=== PATIENT | female | born 1980 | race Caucasian/White ===

== ENCOUNTER 2021-12-24 11:51 | Emergency (ER) | payer MEDICAID, SELFPAY ==
[2021-12-24 12:16] VITALS: BP 99/60; PULSE 66; RESP 18; TEMP 36.5; O2SAT 96; BMI 39.1
--- NOTE | 2021-12-24 13:17 | ED.EAR ---
HPI - Ear Problem General Chief complaint: Ear/Nose/Throat Problem Stated complaint: Ear infection Time Seen by Provider: 12/24/21 11:52 History of Present Illness HPI Narrative: This 41-year-old female comes in reporting pain in her left ear. She states that she has a history of recurrent ear infections and is following with an patient accounts specialist. She has been using external ear drops but feels that she may need an oral antibiotic. She does not report any fevers, cough, shortness of breath, or nasal congestion. She does have some decreased hearing on the left side related to this. Related Data Home Medications Medication Instructions Recorded Confirmed albuterol sulfate 2.5 mg/3 mL mg 12/24/21 (0.083 %) solution for nebulization albuterol sulfate 90 mcg/actuation inhalation 12/24/21 aerosol inhaler famotidine 20 mg tablet mg 12/24/21 fluticasone furoate 100 inhalation 12/24/21 mcg-vilanterol 25 mcg/dose inhalation powder (Breo Ellipta) montelukast 10 mg tablet mg 12/24/21 oxybutynin chloride 5 mg tablet mg 12/24/21 propranolol 20 mg tablet mg 12/24/21 rosuvastatin 10 mg tablet mg 12/24/21 tiotropium bromide 2.5 inhalation 12/24/21 mcg/actuation mist for inhalation (Spiriva Respimat) venlafaxine 150 mg mg PO 12/24/21 capsule,extended release 24 hr venlafaxine 75 mg capsule,extended mg PO 12/24/21 release 24 hr Previous Rx's Medication Instructions Recorded amoxicillin 500 mg capsule 500 mg PO TID 10 days #30 caps 12/24/21 Allergies Allergy/AdvReac Type Severity Reaction Status Date / Time Dust mites Allergy Mild itchy eyes Uncoded 12/10/21 13:26 and swollen, SOB Pollen Allergy Mild itchy Uncoded 12/10/21 13:26 eyes, SOB Review of Systems Status of ROS: Reports: 10 or more systems reviewed and unremarkable except as noted in History and below Narrative: Constitutional: No fevers, no weight gain or loss. Eyes: No discharge. No vision changes. HENT: No congestion, no sore throat. Left ear pain as described above per Cardiovascular: No chest pain, no palpitations. Respiratory: No shortness of breath, no wheezes, no cough. Gastrointestinal: No abdominal pain, no vomiting, no diarrhea. Genitourinary: No dysuria, no hematuria. Musculoskeletal: Normal range of motion. Skin: No rashes, no pruritis. Neurological: No dizziness, weakness, sensory change, speech change. Endo/Heme/Allergies: No bruising or bleeding. No polydipsia. Pysch: no suicidality, no anxiety, no insomnia. All other systems reviewed and are negative. [facility] Medical History (Updated 12/24/21 @ 13:20 by Edgar Duron MD) Body mass index (BMI) of 30.0 to 39.9 (01/16/11) Chronic diarrhea (12/02/08) Chronic gastroesophageal reflux disease Contusion of coccyx Migraine headache (2009) Moderate persistent asthma (2011) Obstructive sleep apnea treated with continuous positive airway pressure (CPAP) [facility]ia Surgical History (Updated 12/20/21 @ 14:54 by Khushboo Manning MD) History of carpal tunnel surgery of left wrist (2017) Hx of tympanostomy tubes Family History (Updated 12/11/21 @ 10:14 by Helena Patton) Maternal Grandmother Breast cancer Stroke Maternal Grandfather Diabetes Myocardial infarction, Onset Age: 80 Mother Diabetes Social History (Updated 12/11/21 @ 10:15 by Helena Patton) Narrative: Does not drink alcohol Does not have regular exercise regimen- walks 1/M daily? 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 HEENT: Normocephalic, atraumatic. Right tympanic membrane has some scarring but no sign of acute infection. Left tympanic membrane has dullness and appears to be infected. Neck: Normal range of motion. Nontender. Supple. Heart: Intact distal pulses. Lungs: No chest discomfort. No wheezes, rhonchi, or rales. Abdomen: Nontender. Back: Normal range of motion. Extremities: Normal range of motion. No injury. Skin: Intact. No rash. Warm. No erythema or pallor. Neurologic: No altered sensation. No weakness. Alert and oriented. Psychiatric: No suicidality. No anxiety or depression. No insomnia. Nursing notes and vitals signs are reviewed. Const: Vital Signs, click to edit/add: Vital Signs - 24 hr 12/24/21 12:16 Temperature 97.7 F Pulse Rate [Pulse Oximeter] 66 Respiratory Rate 18 Blood Pressure [Ri ght Upper Arm] 99/60 Pulse Oximetry 96 Oxygen Delivery Me thod Room Air Course Vital Signs Vital signs: Initial Vital Signs Temperature 97.7 F 12/24/21 12:16 Temperature Source Temporal Artery Scan 12/24/21 12:16 Pulse Rate 66 12/24/21 12:16 Respiratory Rate 18 12/24/21 12:16 Blood Pressure 99/60 12/24/21 12:16 Blood Pressure Mean 73 12/24/21 12:16 Blood Pressure Position Supine 12/24/21 12:16 Pulse Oximetry 96 12/24/21 12:16 Oxygen Delivery Method 12/24/21 12:16 Vital Signs Temperature 97.7 F 12/24/21 12:16 Pulse Rate 66 12/24/21 12:16 Respiratory Rate 18 12/24/21 12:16 Blood Pressure 99/60 12/24/21 12:16 Pulse Oximetry 96 12/24/21 12:16 Oxygen Delivery Method 12/24/21 12:16 Temperature 97.7 F 12/24/21 12:16 Pulse Rate 66 12/24/21 12:16 Respiratory Rate 18 12/24/21 12:16 Blood Pressure 99/60 12/24/21 12:16 Pulse Oximetry 96 12/24/21 12:16 Oxygen Delivery Method 12/24/21 12:16 Medical Decision Making MDM Narrative Medical decision making narrative: This patient comes in with recurrent otitis media. A prescription for amoxicillin is provided. She is also requesting a COVID test as her employer is wanting this. This is ordered with results pending. Discharge Plan Discharge Clinical Impression: Otitis media Patient Disposition: Home, Self-Care Condition: Stable Instructions: Ear Infection (ED) Additional Instructions: Take medication as prescribed. [facility]. Prescriptions: New amoxicillin 500 mg capsule 500 mg PO TID 10 Days Qty: 30 0RF No Action venlafaxine 75 mg capsule,extended release 24hr PO Label Comments: TAKE ONE CAPSULE (75MG) BY MOUTH ONCE DAILY ALONG WITH 1-150MG CAP FOR TOTAL DOSE OF 225MG albuterol sulfate 2.5 mg /3 mL (0.083 %) solution for nebulization Label Comments: USE ONE VIAL IN NEBULIZER EVERY FOUR HOURS NEEDED venlafaxine 150 mg capsule,extended release 24hr PO Label Comments: TAKE 1 CAPSULE (150MG) BY MOUTH ONCE DAILY famotidine 20 mg tablet Label Comments: TAKE ONE TABLET BY MOUTH DAILY montelukast 10 mg tablet Label Comments: TAKE ONE TABLET BY MOUTH AT BEDTIME albuterol sulfate 90 mcg/actuation HFA aerosol inhaler INHALATION Label Comments: INHALE 2 PUFFS EVERY FOUR HOURS NEEDED propranolol 20 mg tablet Label Comments: TAKE TWO TABLETS(40MG) BY MOUTH DAILY oxybutynin chloride 5 mg tablet Label Comments: TAKE ONE TABLET BY MOUTH DAILY rosuvastatin 10 mg tablet Label Comments: TAKE ONE TABLET BY MOUTH DAILY Spiriva Respimat 2.5 mcg/actuation mist INHALATION Label Comments: INHALE 2 PUFF BY INHALATION ROUTE EVERY DAY AT THE SAME TIME EACH DAY fluticasone furoate-vilanterol [Breo Ellipta] 100-25 mcg/dose blister with device INHALATION Label Comments: INHALE 1 PUFF EVERY DAY AT THE SAME TIME EACH DAY RINSE AND SPIT AFTER USE (BUT DO NOT GARGLE). Follow Up/Referrals: Khushboo Manning MD [Primary Care Provider] - Stand Alone Forms: [employer] [facility] Info Instructions
== END 2021-12-24 13:44 | disposition home or self-care (01) ==
PROVIDERS: Emergency Provider Emergency Medicine Emergency Medical Services; PCP Family Medicine
DX: H66.92 Otitis media, unspecified, left ear (principal)
CPT/HCPCS: 99283; 99284

== ENCOUNTER 2022-01-30 16:00 | Outpatient (REF) | payer MEDICAID, SELFPAY ==
[2022-01-30 17:01] LABS: Basophils Percent Auto 0.4 % (0.0-3.0); Eosinophils Percent Auto 5.2 % (0.0-7.0); Hematocrit 45.5 % (33.0-51.0); Hemoglobin* 15.8 gm/dL (12.0-16.0); Immature Granulocytes Abs Auto 0.11 K/uL (0.00-0.30); Lymphocytes Percent Auto 16.7 % (20-44); Mean Corpuscular HGB Conc 35 gm/dL (32-36); Mean Corpuscular Hemoglobin 28 pg (26-34); Mean Corpuscular Volume 81 fL (80-100); Monocytes Percent Auto 6.7 % (0.0-11.0); Neutrophils Percent Auto 70.3 % (42.0-72.0); Platelet Count* 327 K/uL (140-440); RDW Coefficient of Variation % 12.4 % (11.5-15.5); Red Blood Count 5.59 m/uL (4.00-5.20)
[2022-01-30 17:28] LABS: Slide Review Reflex No
[2022-02-02 15:40] LABS: Immunoglobulin E 21 kU/L (<=214)
== END 2022-01-30 16:01 | disposition home or self-care (01) ==
LOC: NPINS 16:00
PROVIDERS: PCP Family Medicine; Visit Provider Internal Medicine Pulmonary Disease
DX: R05.9 Cough, unspecified (principal); J45.41 Moderate persistent asthma with (acute) exacerbation; K21.9 Gastro-esophageal reflux disease without esophagitis; G47.33 Obstructive sleep apnea (adult) (pediatric); Z68.39 Body mass index [BMI] 39.0-39.9, adult; R06.00 Dyspnea, unspecified; G31.84 Mild cognitive impairment of uncertain or unknown etiology; R06.9 Unspecified abnormalities of breathing
CPT/HCPCS: 82785; 85025

== ENCOUNTER 2022-03-08 13:42 | Outpatient (CLI) | payer MEDICAID, SELFPAY ==
[2022-03-08] MEDS: PERFLUTREN LIPID MICROSPHERES 2 ML VIAL IV (14:53)
--- NOTE | 2022-03-08 15:15 | CRLHL7_ITS ---
For Patients: As a result of the Cures Act, medical imaging exams and procedure reports are released immediately into your electronic medical record. You may view this report before your referring provider. If you have questions, please contact your health care provider. INDICATION: increased dyspnea, cough TECHNIQUE: Chest 2 views COMPARISON: None FINDINGS: Cardiovascular and mediastinum: Heart size and vasculature are normal in caliber and appearance. Lungs and pleural spaces: Mild bronchial wall thickening is noted in the perihilar lungs. No sign of infiltrate or mass. No sign of pleural effusion. No pneumothorax. Bones and soft tissues: No significant findings. IMPRESSION: Mild bilateral perihilar bronchial wall thickening extending to both upper lobes suggesting either bronchiolitis related to reactive airway disease or post viral syndrome versus bronchiectasis. Dictated by Ronnie Toscano MD @ 03/08/2022 3:33:08 PM (Electronically Signed)
== END 2022-03-08 13:43 | disposition home or self-care (01) ==
LOC: RAD 13:44
PROVIDERS: PCP Family Medicine; Visit Provider Internal Medicine Pulmonary Disease
DX: R06.09 Other forms of dyspnea (principal); J47.9 Bronchiectasis, uncomplicated; R05.9 Cough, unspecified
CPT/HCPCS: 71046; 93306; Q9957

== ENCOUNTER 2022-09-03 13:52 | Emergency (ER) | payer MEDICAID, SELFPAY ==
[2022-09-03 14:14] VITALS: BP 117/78; PULSE 95; RESP 32; TEMP 36.4; O2SAT 96; BMI 39.1
--- NOTE | 2022-09-03 14:43 | CRLHL7_ITS ---
For Patients: As a result of the Century Cures Act, medical imaging exams and procedure reports are released immediately into your electronic medical record. You may view this report before your referring provider. If you have questions, please contact your health care provider. Indication: Shortness of breath. Cough. Technique: Portable one-view AP upright chest x-ray Comparison: 03/08/2022. Findings: Lungs clear. Heart normal. Angie unremarkable. No pleural fluid or pneumothorax. No musculoskeletal pathology identified. Impression: Negative chest x-ray, little changed from 03/08/2022. Dictated by Janes Sorensen MD @ 09/03/2022 3:41:52 PM (Electronically Signed)
[2022-09-03 15:14] LABS: PCR FLU A Negative PCR FLU A (Negative); PCR FLU B Negative PCR FLU B (Negative); PCR RSV Negative PCR RSV (Negative); SARS PCR* Negative SARS-CoV-2 (Negative)
--- NOTE | 2022-09-03 15:32 | ED.GENADULT ---
HPI - General Adult General Date Seen: 09/03/22 Chief complaint: Cough Stated complaint: Cold going for a week, Getting worse Time Seen by Provider: 09/03/22 14:13 Source: patient Mode of arrival: ambulatory Limitations: no limitations History of Present Illness HPI narrative: Patient is a 42-year-old here for evaluation of cough and shortness of breath. She has asthma who reports that she has been using her rescue neb and inhaler frequently but still feels short of breath. She does have a couple of other asthma medications as well and she has been taking those as prescribed. She does occasionally smoke pot but says she is not this week. She does not smoke cigarettes. She has not had a fever that she knows of. She does not have chest pain although her chest feels heavy. She is not coughing anything up, but the sometimes coughs so hard that she has thrown up on the heels of a coughing spell. Related Data Home Medications Medication Instructions Recorded Confirmed albuterol sulfate 2.5 mg/3 mL 2.5 mg continuous nebulization 02/25/22 02/25/22 (0.083 %) solution for nebulization Q6-8H PRN shortness of breath or wheezing albuterol sulfate 90 mcg/actuation 2 puff inhalation Q6-8H PRN 02/25/22 02/25/22 aerosol inhaler shortness of breath or wheezing dupilumab 200 mg/1.14 mL 200 mg subcut Q2W 02/25/22 02/25/22 subcutaneous pen injector fluticasone furoate 100 1 inh inhalation QDAY 02/25/22 02/25/22 mcg-vilanterol 25 mcg/dose inhalation powder (Breo Ellipta) ibuprofen 800 mg tablet 800 mg PO Q8H PRN 02/25/22 02/25/22 prednisone 20 mg tablet 10 mg PO QDAY 02/25/22 02/25/22 rosuvastatin 10 mg tablet 10 mg PO QDAY 02/25/22 02/25/22 tiotropium bromide 2.5 2 puff inhalation QDAY 02/25/22 02/25/22 mcg/actuation mist for inhalation (Spiriva Respimat) levonorgestrel-ethinyl estradiol 1 tab PO QDAY 08/19/22 0.1 mg-20 mcg tablet (Vienva) Previous Rx's Medication Instructions Recorded triamcinolone acetonide 0.1 % 1 applic topical BID #30 grams 02/25/22 topical ointment promethazine 25 mg tablet See Rx Instructions .Route 05/22/22 .COMPLEX #10 tabs lorazepam 0.5 mg tablet 0.5 mg PO QDAY PRN anxiety #10 tabs 06/28/22 famotidine 20 mg tablet 20 mg PO QDAY #90 tabs 08/20/22 levonorgestrel-ethinyl estradiol 1 tab PO QDAY #28 tabs 08/20/22 0.1 mg-20 mcg tablet (Vienva) montelukast 10 mg tablet 10 mg PO QDAY #30 tabs 08/29/22 oxybutynin chloride 5 mg tablet 5 mg PO QDAY #30 tabs 08/29/22 propranolol 20 mg tablet 40 mg PO QDAY #60 tabs 08/29/22 venlafaxine 150 mg 150 mg PO QDAY #30 caps 08/29/22 capsule,extended release 24 hr venlafaxine 75 mg capsule,extended 75 mg PO QDAY #30 caps 08/29/22 release 24 hr codeine 10 mg-guaifenesin 100 mg/5 10 ml PO Q4-6H PRN #120 mL 09/03/22 mL oral liquid (Guaifenesin AC) prednisone 20 mg tablet 20 mg PO BID #10 tabs 09/03/22 Allergies Allergy/AdvReac Type Severity Reaction Status Date / Time Dust mites Allergy Mild itchy eyes Uncoded 02/25/22 12:55 and swollen, SOB Pollen Allergy Mild itchy Uncoded 02/25/22 12:55 eyes, SOB Review of Systems Status of ROS: Reports: 6 or more systems reviewed and unremarkable except as noted in History and below [facility] Medical History Body mass index (BMI) of 30.0 to 39.9 (01/16/11) Chronic diarrhea (12/02/08) ?K52.9 - Noninfective gastroenteritis and colitis, unspecified (ICD-10) Chronic gastroesophageal reflux disease ?K21.9 - Gastro-esophageal reflux disease without esophagitis (ICD-10) Contusion of coccyx ?S30.0XXA - Contusion of lower back and pelvis, initial encounter (ICD-10) Migraine headache (2009) ?G43.909 - Migraine, unspecified, not intractable, without status migrainosus (ICD-10) Moderate persistent asthma (2011) ?J45.40 - Moderate persistent asthma, uncomplicated (ICD-10) Obstructive sleep apnea treated with continuous positive airway pressure (CPAP) ?G47.33 - Obstructive sleep apnea (adult) (pediatric) (ICD-10) ?Z99.89 - Dependence on other enabling machines and devices (ICD-10) Paronychia Surgical History History of carpal tunnel surgery of left wrist (2018) ?Z98.890 - Other specified postprocedural states (ICD-10) Hx of tympanostomy tubes ?Z98.890 - Other specified postprocedural states (ICD-10) Family History Maternal Grandmother Breast cancer Stroke Maternal Grandfather Diabetes Myocardial infarction, Onset Age: 80 Mother Diabetes Social History Narrative: Does not drink alcohol Does not have regular exercise regimen- walks 1/M daily? 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 In general, an alert, nontoxic woman. Coughs occasionally, breathing easily. Head: Normocephalic, atraumatic. Eyes: Pupils are equal reactive. Extraocular movements are full. Conjunctivae are normal. ENT: Mucous membranes are moist. Throat is normal. Neck: Supple without lymphadenopathy. No stridor. Heart: Regular rate and rhythm. No murmur or rub. Lungs: She does not have wheezing with inspiration or expiration, she does have a little bit of wheezing noted at the end of her cough. No crackles, no increased work of breathing. Abdomen: Soft and nontender. No organomegaly. Extremities: Well perfused. No edema. No calf tenderness. Pulses intact. Neurologic: Patient is alert and oriented to person and place. Speech is fluent. Face is symmetric. Moves all extremities equally. Affect: Normal. Skin: Warm and dry. Well perfused. Const: Vital Signs, click to edit/add: Vital Signs - 24 hr 09/03/22 14:14 Temperature 97.5 F L Pulse Rate [Pulse Oximeter] 95 Respiratory Rate 32 H Blood Pressure [Ri ght Upper Arm] 117/78 Pulse Oximetry 96 Oxygen Delivery Me thod Room Air Documenting provider has reviewed patient's vital signs: yes Course Course Hospital Course: I did do a chest x-ray today which I reviewed, I do not see any evidence of infiltrate. Final radiology read is likewise negative. Discussed with her I think symptoms are likely viral, bronchitis, exacerbated by her known asthma diagnosis. She looks well here, she is oxygenating well and does not appear to have significant reactive airways right now. I have suggested that we put her on some prednisone and offered a cough syrup with codeine which she says has been useful in the past. If she has worsening respiratory difficulties, return at any time for re-evaluation. Otherwise primary care follow-up if not improved in the next week or 2. Avoid marijuana. Vital Signs Vital signs: Initial Vital Signs Temperature 97.5 F L 09/03/22 14:14 Temperature Source Temporal Artery Scan 09/03/22 14:14 Pulse Rate 95 09/03/22 14:14 Respiratory Rate 32 H 09/03/22 14:14 Blood Pressure 117/78 09/03/22 14:14 Blood Pressure Mean 91 09/03/22 14:14 Blood Pressure Position Sitting 09/03/22 14:14 Pulse Oximetry 96 09/03/22 14:14 Oxygen Delivery Method Room Air 09/03/22 14:14 Vital Signs Temperature 97.5 F L 09/03/22 14:14 Pulse Rate 95 09/03/22 14:14 Respiratory Rate 32 H 09/03/22 14:14 Blood Pressure 117/78 09/03/22 14:14 Pulse Oximetry 96 09/03/22 14:14 Oxygen Delivery Method Room Air 09/03/22 14:14 Temperature 97.5 F L 09/03/22 14:14 Pulse Rate 95 09/03/22 14:14 Respiratory Rate 32 H 09/03/22 14:14 Blood Pressure 117/78 09/03/22 14:14 Pulse Oximetry 96 09/03/22 14:14 Oxygen Delivery Method Room Air 09/03/22 14:14 Medical Decision Making Lab Data Labs: Lab Results 09/03/22 Range/Units 14:02 SARS-CoV-2 (PCR) Negative SARS-CoV-2 (Negative) Influenza Type A (PCR) Negative PCR FLU A (Negative) Influenza Type B (PCR) Negative PCR FLU B (Negative) RSV (PCR) Negative PCR RSV (Negative) Discharge Plan Discharge Clinical Impression: Bronchitis, Asthma Patient Disposition: Home, Self-Care Condition: Stable Instructions: Acute Bronchitis (ED) Additional Instructions: Continue with your current medications. Other medicines as prescribed. If you are worsening rather than stable to improving, return at any time for re-evaluation. See primary care if not improved in a couple of weeks. Prescriptions: New prednisone 20 mg tablet 20 mg PO BID Qty: 10 0RF codeine-guaifenesin [Guaifenesin AC] 10-100 mg/5 mL liquid 10 ml PO Q4-6H PRNQty: 120 0RF Rx Instructions: Do not combine with other sedatives such as Ativan. No Action prednisone 20 mg tablet 10 mg PO QDAY ibuprofen 800 mg tablet 800 mg PO Q8H PRN dupilumab 200 mg/1.14 mL pen injector 200 mg subcut Q2W triamcinolone acetonide 0.1 % ointment 1 applic topical BID Qty: 30 0RF albuterol sulfate 2.5 mg /3 mL (0.083 %) solution for nebulization 2.5 mg continuous nebulization Q6-8H PRN (Reason: shortness of breath or wheezing) Patient Comments: USE ONE VIAL IN NEBULIZER EVERY FOUR HOURS NEEDED albuterol sulfate 90 mcg/actuation HFA aerosol inhaler 2 puff INHALATION Q6-8H PRN (Reason: shortness of breath or wheezing) Patient Comments: INHALE 2 PUFFS EVERY FOUR HOURS NEEDED fluticasone furoate-vilanterol [Breo Ellipta] 100-25 mcg/dose blister with device 1 inh INHALATION QDAY Patient Comments: INHALE 1 PUFF EVERY DAY AT THE SAME TIME EACH DAY RINSE AND SPIT AFTER USE (BUT DO NOT GARGLE). rosuvastatin 10 mg tablet 10 mg PO QDAY Patient Comments: TAKE ONE TABLET BY MOUTH DAILY Spiriva Respimat 2.5 mcg/actuation mist 2 puff INHALATION QDAY Patient Comments: INHALE 2 PUFF BY INHALATION ROUTE EVERY DAY AT THE SAME TIME EACH DAY promethazine 25 mg tablet See Rx Instructions .ROUTE .COMPLEX Qty: 10 0RF Dose Instruction: TAKE ONE TABLET BY MOUTH EVERY DAY NEEDED FOR NAUSEA AND VOMITING ASSOCIATED WITH MIGRAINES Rx Instructions: TAKE ONE TABLET BY MOUTH EVERY DAY NEEDED FOR NAUSEA AND VOMITING ASSOCIATED WITH MIGRAINES lorazepam 0.5 mg tablet 0.5 mg PO QDAY PRN (Reason: anxiety) Qty: 10 0RF Rx Instructions: 1 tab as needed for anxiety. Due for yearly med check, no more refills until seen in clinic levonorgestrel-ethinyl estrad [Vienva] 0.1-20 mg-mcg tablet 1 tab PO QDAY famotidine 20 mg tablet 20 mg PO QDAY Qty: 90 0RF Patient Comments: TAKE ONE TABLET BY MOUTH DAILY levonorgestrel-ethinyl estrad [Vienva] 0.1-20 mg-mcg tablet 1 tab PO QDAY Qty: 28 0RF oxybutynin chloride 5 mg tablet 5 mg PO QDAY Qty: 30 0RF Patient Comments: TAKE ONE TABLET BY MOUTH DAILY montelukast 10 mg tablet 10 mg PO QDAY Qty: 30 0RF Patient Comments: TAKE ONE TABLET BY MOUTH AT BEDTIME venlafaxine 75 mg capsule,extended release 24hr 75 mg PO QDAY Qty: 30 0RF Patient Comments: TAKE ONE CAPSULE (75MG) BY MOUTH ONCE DAILY ALONG WITH 1-150MG CAP FOR TOTAL DOSE OF 225MG venlafaxine 150 mg capsule,extended release 24hr 150 mg PO QDAY Qty: 30 0RF Patient Comments: TAKE 1 CAPSULE (150MG) BY MOUTH ONCE DAILY propranolol 20 mg tablet 40 mg PO QDAY Qty: 60 0RF Patient Comments: TAKE TWO TABLETS(40MG) BY MOUTH DAILY Follow Up/Referrals: Khushboo Manning MD [Primary Care Provider] - Stand Alone Forms: [facility] Info Instructions
[2022-09-03 16:05] VITALS: BP 117/78; PULSE 95; RESP 32; TEMP 36.4
== END 2022-09-03 16:05 | disposition home or self-care (01) ==
PROVIDERS: Emergency Provider Emergency Medicine; PCP Family Medicine
DX: Z20.822 Contact with and (suspected) exposure to COVID-19 (principal); J40 Bronchitis, not specified as acute or chronic; J45.909 Unspecified asthma, uncomplicated
CPT/HCPCS: 71045; 87631; 99284

== ENCOUNTER 2022-09-21 14:22 | Emergency (ER) | payer MEDICAID, SELFPAY ==
[2022-09-21 14:26] VITALS: BP 113/74; PULSE 75; RESP 16; TEMP 36.1; O2SAT 98; BMI 46.9
--- NOTE | 2022-09-21 14:43 | ED.LOWEXIN ---
HPI - Extremity Injury (Lower) General Chief Complaint: Extremity Pain/Injury, Lower Stated Complaint: Fell down steps, L foot injury Time Seen by Provider: 09/21/22 14:31 History of Present Illness HPI Narrative: Patient tripped down 3 steps one week ago taking her dogs outside, injuring left foot. Pain/ swelling since. Has tried Tylenol, hot foot soaks. No previous injury . Tylenol. 42-year-old woman who fell ?face first down some stairs about a week ago injuring her left foot in the process. She maintains that it was not her ankle. Increasingly painful to walk on. She has been icing and soaking in warm water as well as taking acetaminophen. She notes bruising and swelling. Indicates most pain is in the mid-dorsal forefoot area. No loss of consciousness. No neck or back pain. Related Data Home Medications Medication Instructions Recorded Confirmed albuterol sulfate 2.5 mg/3 mL 2.5 mg continuous nebulization 02/25/22 02/25/22 (0.083 %) solution for nebulization Q6-8H PRN shortness of breath or wheezing albuterol sulfate 90 mcg/actuation 2 puff inhalation Q6-8H PRN 02/25/22 02/25/22 aerosol inhaler shortness of breath or wheezing dupilumab 200 mg/1.14 mL 200 mg subcut Q2W 02/25/22 02/25/22 subcutaneous pen injector fluticasone furoate 100 1 inh inhalation QDAY 02/25/22 02/25/22 mcg-vilanterol 25 mcg/dose inhalation powder (Breo Ellipta) ibuprofen 800 mg tablet 800 mg PO Q8H PRN 02/25/22 02/25/22 prednisone 20 mg tablet 10 mg PO QDAY 02/25/22 02/25/22 tiotropium bromide 2.5 2 puff inhalation QDAY 02/25/22 02/25/22 mcg/actuation mist for inhalation (Spiriva Respimat) Previous Rx's Medication Instructions Recorded triamcinolone acetonide 0.1 % 1 applic topical BID #30 grams 02/25/22 topical ointment lorazepam 0.5 mg tablet 0.5 mg PO QDAY PRN anxiety #10 tabs 06/28/22 levonorgestrel-ethinyl estradiol 1 tab PO QDAY #28 tabs 08/20/22 0.1 mg-20 mcg tablet (Vienva) codeine 10 mg-guaifenesin 100 mg/5 10 ml PO Q4-6H PRN #120 mL 09/03/22 mL oral liquid (Guaifenesin AC) prednisone 20 mg tablet 20 mg PO BID #10 tabs 09/03/22 levonorgestrel-ethinyl estradiol 1 tab PO QDAY #28 tabs 09/17/22 0.1 mg-20 mcg tablet (Vienva) promethazine 25 mg tablet See Rx Instructions .Route 09/24/22 .COMPLEX #10 tabs famotidine 20 mg tablet 20 mg PO QDAY #30 tabs 09/25/22 montelukast 10 mg tablet 10 mg PO QDAY #30 tabs 09/25/22 oxybutynin chloride 5 mg tablet 5 mg PO QDAY #30 tabs 09/25/22 propranolol 20 mg tablet 40 mg (2 x 20 mg) PO QDAY #60 tabs 09/25/22 rosuvastatin 10 mg tablet 10 mg PO QDAY #30 tabs 09/25/22 venlafaxine 150 mg 150 mg PO QDAY #30 caps 09/25/22 capsule,extended release 24 hr venlafaxine 75 mg capsule,extended 75 mg PO QDAY #30 caps 09/25/22 release 24 hr Allergies Allergy/AdvReac Type Severity Reaction Status Date / Time Dust mites Allergy Mild itchy eyes Uncoded 02/25/22 12:55 and swollen, SOB Pollen Allergy Mild itchy Uncoded 02/25/22 12:55 eyes, SOB Review of Systems Status of ROS: Reports: 6 or more systems reviewed and unremarkable except as noted in History and below [facility] Medical History Paronychia Obstructive sleep apnea treated with continuous positive airway pressure (CPAP) ?G47.33 - Obstructive sleep apnea (adult) (pediatric) (ICD-10) ?Z99.89 - Dependence on other enabling machines and devices (ICD-10) Moderate persistent asthma (2011) ?J45.40 - Moderate persistent asthma, uncomplicated (ICD-10) Migraine headache (2009) ?G43.909 - Migraine, unspecified, not intractable, without status migrainosus (ICD-10) Contusion of coccyx ?S30.0XXA - Contusion of lower back and pelvis, initial encounter (ICD-10) Chronic gastroesophageal reflux disease ?K21.9 - Gastro-esophageal reflux disease without esophagitis (ICD-10) Chronic diarrhea (12/02/08) ?K52.9 - Noninfective gastroenteritis and colitis, unspecified (ICD-10) Body mass index (BMI) of 30.0 to 39.9 (01/16/11) Surgical History Hx of tympanostomy tubes ?Z98.890 - Other specified postprocedural states (ICD-10) History of carpal tunnel surgery of left wrist (2018) ?Z98.890 - Other specified postprocedural states (ICD-10) Family History Maternal Grandmother Breast cancer Stroke Maternal Grandfather Diabetes Myocardial infarction, Onset Age: 80 Mother Diabetes Social History Narrative: Does not drink alcohol Does not have regular exercise regimen- walks 1/M daily? 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 Of good energy. Breathing easily. Neck is supple nontender. Back nontender. Head looks atraumatic. Moving all extremities without difficulty other than favoring left foot. Plantar bruising and bruising/purpling around the edges of the foot Pain to palpation at mid distal forefoot. No ankle involvement/no pain to palpation about the ankle. Const: Vital Signs, click to edit/add: Vital Signs - 24 hr 09/21/22 14:26 Temperature 96.9 F L Pulse Rate [Pulse Oximeter] 75 Respiratory Rate 16 Blood Pressure [Ri ght Upper Arm] 113/74 Pulse Oximetry 98 Oxygen Delivery Me thod Room Air Documenting provider has reviewed patient's vital signs: yes Course Vital Signs Vital signs: Initial Vital Signs Temperature 96.9 F L 09/21/22 14:26 Temperature Source Temporal Artery Scan 09/21/22 14:26 Pulse Rate 75 09/21/22 14:26 Respiratory Rate 16 09/21/22 14:26 Blood Pressure 113/74 09/21/22 14:26 Blood Pressure Mean 87 09/21/22 14:26 Blood Pressure Position Sitting 09/21/22 14:26 Pulse Oximetry 98 09/21/22 14:26 Oxygen Delivery Method Room Air 09/21/22 14:26 Vital Signs Temperature 96.9 F L 09/21/22 14:26 Pulse Rate 75 09/21/22 14:26 Respiratory Rate 16 09/21/22 14:26 Blood Pressure 113/74 09/21/22 14:26 Pulse Oximetry 98 09/21/22 14:26 Oxygen Delivery Method Room Air 09/21/22 14:26 Temperature 96.9 F L 09/21/22 14:26 Pulse Rate 75 09/21/22 14:26 Respiratory Rate 16 09/21/22 14:26 Blood Pressure 113/74 09/21/22 14:26 Pulse Oximetry 98 09/21/22 14:26 Oxygen Delivery Method Room Air 09/21/22 14:26 MDM - Extremity Injury (Lower) MDM Narrative Medical decision making narrative: Especially given the plantar bruising I think this warrants x-ray imaging. Would have concern about a forefoot fracture; at minimum a sprain. X-ray images reviewed by me I surprisingly do not appreciate a fracture. See patient discharge plan Medical Records Attestation: I reviewed the patient's medical records. Discharge Plan Discharge Clinical Impression: Foot sprain Patient Disposition: Home, Self-Care Condition: Stable Instructions: Foot Sprain (ED) Additional Instructions: It does not appear that there is a fracture here. Sprains are a challenge to heal though as well. I would still apply ice packs couple of times a day over the next few days. Hold them on with an Latrell wrap. Since it is still really hurts to walk on it, I would use those crutches still over the next few days. Can take up to 800 mg of ibuprofen or up to 1000 mg of acetaminophen per dose. Elevate for comfort as well. See handout on foot sprain. Has suggestions for rehabilitation. Prescriptions: No Action prednisone 20 mg tablet 10 mg PO QDAY ibuprofen 800 mg tablet 800 mg PO Q8H PRN dupilumab 200 mg/1.14 mL pen injector 200 mg subcut Q2W triamcinolone acetonide 0.1 % ointment 1 applic topical BID Qty: 30 0RF albuterol sulfate 2.5 mg /3 mL (0.083 %) solution for nebulization 2.5 mg continuous nebulization Q6-8H PRN (Reason: shortness of breath or wheezing) Patient Comments: USE ONE VIAL IN NEBULIZER EVERY FOUR HOURS NEEDED albuterol sulfate 90 mcg/actuation HFA aerosol inhaler 2 puff INHALATION Q6-8H PRN (Reason: shortness of breath or wheezing) Patient Comments: INHALE 2 PUFFS EVERY FOUR HOURS NEEDED fluticasone furoate-vilanterol [Breo Ellipta] 100-25 mcg/dose blister with device 1 inh INHALATION QDAY Patient Comments: INHALE 1 PUFF EVERY DAY AT THE SAME TIME EACH DAY RINSE AND SPIT AFTER USE (BUT DO NOT GARGLE). Spiriva Respimat 2.5 mcg/actuation mist 2 puff INHALATION QDAY Patient Comments: INHALE 2 PUFF BY INHALATION ROUTE EVERY DAY AT THE SAME TIME EACH DAY prednisone 20 mg tablet 20 mg PO BID Qty: 10 0RF codeine-guaifenesin [Guaifenesin AC] 10-100 mg/5 mL liquid 10 ml PO Q4-6H PRNQty: 120 0RF Rx Instructions: Do not combine with other sedatives such as Ativan. lorazepam 0.5 mg tablet 0.5 mg PO QDAY PRN (Reason: anxiety) Qty: 10 0RF Rx Instructions: 1 tab as needed for anxiety. Due for yearly med check, no more refills until seen in clinic levonorgestrel-ethinyl estrad [Vienva] 0.1-20 mg-mcg tablet 1 tab PO QDAY Qty: 28 0RF levonorgestrel-ethinyl estrad [Vienva] 0.1-20 mg-mcg tablet 1 tab PO QDAY Qty: 28 0RF promethazine 25 mg tablet See Rx Instructions .ROUTE .COMPLEX Qty: 10 0RF Dose Instruction: TAKE ONE TABLET BY MOUTH EVERY DAY NEEDED FOR NAUSEA AND VOMITING ASSOCIATED WITH MIGRAINES Rx Instructions: TAKE ONE TABLET BY MOUTH EVERY DAY NEEDED FOR NAUSEA AND VOMITING ASSOCIATED WITH MIGRAINES propranolol 20 mg tablet 40 mg PO QDAY Qty: 60 0RF Patient Comments: TAKE TWO TABLETS(40MG) BY MOUTH DAILY venlafaxine 150 mg capsule,extended release 24hr 150 mg PO QDAY Qty: 30 0RF Patient Comments: TAKE 1 CAPSULE (150MG) BY MOUTH ONCE DAILY venlafaxine 75 mg capsule,extended release 24hr 75 mg PO QDAY Qty: 30 0RF Patient Comments: TAKE ONE CAPSULE (75MG) BY MOUTH ONCE DAILY ALONG WITH 1-150MG CAP FOR TOTAL DOSE OF 225MG oxybutynin chloride 5 mg tablet 5 mg PO QDAY Qty: 30 0RF Patient Comments: TAKE ONE TABLET BY MOUTH DAILY montelukast 10 mg tablet 10 mg PO QDAY Qty: 30 0RF Patient Comments: TAKE ONE TABLET BY MOUTH AT BEDTIME famotidine 20 mg tablet 20 mg PO QDAY Qty: 30 0RF Patient Comments: TAKE ONE TABLET BY MOUTH DAILY rosuvastatin 10 mg tablet 10 mg PO QDAY Qty: 30 0RF Patient Comments: TAKE ONE TABLET BY MOUTH DAILY Follow Up/Referrals: Khushboo Manning MD [Primary Care Provider] - Stand Alone Forms: [employer] Info Instructions
--- NOTE | 2022-09-21 14:48 | CRLHL7_ITS ---
For Patients: As a result of the Cures Act, medical imaging exams and procedure reports are released immediately into your electronic medical record. You may view this report before your referring provider. If you have questions, please contact your health care provider. INDICATION: Left foot injury. FINDINGS: Three views of the left foot were obtained. There is no acute fracture or dislocation. The joint space compartments are maintained. IMPRESSION: No acute bone abnormality. Dictated by Bairon Chung MD @ 09/21/2022 4:18:54 PM (Electronically Signed)
== END 2022-09-21 17:38 | disposition home or self-care (01) ==
PROVIDERS: Emergency Provider Family Medicine; PCP Family Medicine
DX: S93.602A Unspecified sprain of left foot, initial encounter (principal); W10.9XXA Fall (on) (from) unspecified stairs and steps, initial encounter
CPT/HCPCS: 73630; 99283

== ENCOUNTER 2022-12-05 13:13 | Outpatient (CLI) | payer MEDICAID, SELFPAY | END 2022-12-05 13:14 | disposition home or self-care (01) | PROVIDERS: PCP Family Medicine; Visit Provider Family Medicine | DX: Z01.419 Encounter for gynecological examination (general) (routine) without abnormal findings (principal); E66.9 Obesity, unspecified; R73.01 Impaired fasting glucose; R53.83 Other fatigue; R79.89 Other specified abnormal findings of blood chemistry; E78.5 Hyperlipidemia, unspecified; N91.1 Secondary amenorrhea | CPT/HCPCS: 80053; 84443; 84703 ==

== ENCOUNTER 2022-12-28 10:17 | Emergency (ER) | payer MEDICAID, SELFPAY ==
[2022-12-28 10:28] VITALS: BP 127/79; PULSE 84; RESP 16; TEMP 36.2; O2SAT 95; BMI 39.1
--- NOTE | 2022-12-28 10:47 | CRLHL7_ITS ---
For Patients: As a result of the Century Cures Act, medical imaging exams and procedure reports are released immediately into your electronic medical record. You may view this report before your referring provider. If you have questions, please contact your health care provider. INDICATION: Left-sided neck pain. COMPARISON: Three-view study C-spine. FINDINGS: Anterior listhesis of C4 over C5 by 4 mm. No acute fracture or dislocation. Disc space narrowing and disc degeneration at C5-6. Suggest obtaining a CT of the C-spine for further assessment. IMPRESSION: 1. Disc space narrowing and disc degeneration at C5-6. 2. Anterior listhesis of C4 by 3.9 mm. Dictated by Russell Rojas MD @ 12/28/2022 11:30:12 AM (Electronically Signed)
--- NOTE | 2022-12-28 10:55 | ED_ITS ---
HPI - Neck Pain/Injury General Date Seen: 12/28/22 Chief Complaint: Neck Injury/Pain Stated Complaint: pinched nerve down neck Time Seen by Provider: 12/28/22 10:28 Source: patient Mode of arrival: ambulatory Limitations: no limitations History of Present Illness HPI Narrative: Patient is a very nice 42-year-old female who presents here with a right-sided neck pain. She is right-hand dominant. She noted she slept on her neck, and woke up with pain on the right side of her neck, she has radicular symptoms a come down her right hand, in anterior biceps, forearm, to the palm, and also to the last 2-3 fingers. Laterally. She does notice any weakness, but notices that she just does not have the same sensation over this. She is trying Tylenol ibuprofen with really no improvement, she has also tried some ice. She has no previous history of neck problems. Denies any fevers chills or sweats history of trauma falls, head injuries, or personal history of malignancy. MD complaint: neck pain Onset (ago): day(s) Place: home Radiation: right lateral and right upper extremity Severity: moderate Quality: sharp, tingling and spasming Relieving factors: cold therapy and immobilization Exacerbating factors: movement of neck Associated symptoms: none Treatments prior to arrival: acetaminophen and ibuprofen Related Data Home Medications Medication Instructions Recorded Confirmed albuterol sulfate 2.5 mg/3 mL 2.5 mg continuous nebulization 02/25/22 12/05/22 (0.083 %) solution for nebulization Q6-8H PRN shortness of breath or wheezing albuterol sulfate 90 mcg/actuation 2 puff inhalation Q6-8H PRN 02/25/22 12/05/22 aerosol inhaler shortness of breath or wheezing dupilumab 200 mg/1.14 mL 200 mg subcut Q2W 02/25/22 12/05/22 subcutaneous pen injector fluticasone furoate 100 1 inh inhalation QDAY 02/25/22 12/05/22 mcg-vilanterol 25 mcg/dose inhalation powder (Breo Ellipta) ibuprofen 800 mg tablet 800 mg PO Q8H PRN 02/25/22 12/05/22 tiotropium bromide 2.5 2 puff inhalation QDAY 02/25/22 12/05/22 mcg/actuation mist for inhalation (Spiriva Respimat) Previous Rx's Medication Instructions Recorded lorazepam 0.5 mg tablet 0.5 mg PO QDAY PRN anxiety #10 tabs 06/28/22 promethazine 25 mg tablet See Rx Instructions .Route 09/24/22 .COMPLEX #10 tabs famotidine 20 mg tablet 20 mg PO QDAY #90 tabs 12/05/22 oxybutynin chloride 5 mg tablet 5 mg PO QDAY #90 tabs 12/05/22 propranolol 20 mg tablet 40 mg (2 x 20 mg) PO QDAY #180 tabs 12/05/22 rosuvastatin 10 mg tablet 10 mg PO QDAY #90 tabs 12/05/22 venlafaxine 150 mg 150 mg PO QDAY #90 caps 12/05/22 capsule,extended release 24 hr venlafaxine 75 mg capsule,extended 75 mg PO QDAY #30 caps 12/05/22 release 24 hr levonorgestrel-ethinyl estradiol 1 tab PO QDAY #84 tabs 12/19/22 0.1 mg-20 mcg tablet (Vienva) montelukast 10 mg tablet 10 mg PO QDAY #90 tabs 12/19/22 cyclobenzaprine 10 mg tablet 10 mg PO TID PRN muscle spasm #30 12/28/22 tabs methylprednisolone 4 mg tablets in See Rx Instructions PO .COMPLEX 12/28/22 a dose pack (Medrol (Michael)) #21 ea Allergies Allergy/AdvReac Type Severity Reaction Status Date / Time Dust mites Allergy Mild itchy eyes Uncoded 12/05/22 12:45 and swollen, SOB Pollen Allergy Mild itchy Uncoded 12/05/22 12:45 eyes, SOB Review of Systems Status of ROS: Reports: 10 or more systems reviewed and unremarkable except as noted in History and below [facility] Medical History Obesity (BMI 30-39.9) (2010) ?E66.9 - Obesity, unspecified (ICD-10) Dyslipidemia ?E78.5 - Hyperlipidemia, unspecified (ICD-10) Morbid obesity with BMI of 45.0-49.9, adult ?E66.01 - Morbid (severe) obesity due to excess calories (ICD-10) ?Z68.42 - Body mass index [BMI] 45.0-49.9, adult (ICD-10) Depression ?F32.A - Depression, unspecified (ICD-10) Paronychia Obstructive sleep apnea treated with continuous positive airway pressure (CPAP) (07/2021) ?G47.33 - Obstructive sleep apnea (adult) (pediatric) (ICD-10) ?Z99.89 - Dependence on other enabling machines and devices (ICD-10) Moderate persistent asthma (2011) ?J45.40 - Moderate persistent asthma, uncomplicated (ICD-10) Migraine headache (2009) ?G43.909 - Migraine, unspecified, not intractable, without status migrainosus (ICD-10) Chronic gastroesophageal reflux disease ?K21.9 - Gastro-esophageal reflux disease without esophagitis (ICD-10) Chronic diarrhea (12/02/08) ?K52.9 - Noninfective gastroenteritis and colitis, unspecified (ICD-10) Surgical History Hx of tympanostomy tubes ?Z98.890 - Other specified postprocedural states (ICD-10) History of carpal tunnel surgery of left wrist (2018) ?Z98.890 - Other specified postprocedural states (ICD-10) Family History Maternal Grandmother Breast cancer Stroke Maternal Grandfather Diabetes Myocardial infarction, Onset Age: 80 Mother Diabetes Social History Narrative: Single, unemployed lives w mother, has boyfriend Does not drink alcohol Does not have regular exercise regimen Non-smoker What is your current living situation?: I have a place to live at present, but am concerned about future Problems where you live: oven or stove not working In the past 12 months, utilities in danger of being shut off: no In the past 12 mos, have been you worried that your food would run out before you had money to buy more?: never true In the past 12 mos, the food you bought just didn't last and you didn't have money to buy more?: never true Smoking Status: Never smoker Do you use any of these nicotine containing products: None Second hand tobacco smoke exposure: No How often do you have a drink containing alcohol: never AUDIT-C Alcohol total score: 0 Non-prescribed substance use: denies use How often does anyone, including family, friends and others, physically hurt you : never How often does anyone, including family, friends and others, insult or talk down to you: never How often does anyone, including family, friends and others, threaten you with harm: never How often does anyone, including family, friends and others, scream or curse at you: never Little interest or pleasure in doing things: several days Feeling down, depressed, or hopeless: several days service: No Exam Narrative: Exam Narrative: Patient is seen in room 1, she appears to be in no apparent distress her neck is cocked to the left. At approximately 20?. Her rotation of her neck is normal, at 60? bilaterally, this does not induce any radicular symptoms, extension is limited to approximately 16 cm she can come within 6. On flexion side flexion is worse to the right, with inducement of symptoms a come down her right upper extremity. Her counselor education professor strength bilaterally are equal, 1st finger thumb opposition normal wrist dorsiflexion normal, biceps triceps power and shoulder abduction are graded 5/5 power bilaterally her reflexes are slightly hyper reflexive in the right upper extremity, at 3/4 in both her biceps triceps and brachioradialis. In comparison the left which is 2+. Sensation is normal over all her areas, but she gives a really good history of altered sensation over her C8T1 area. No rashes are noted, feels normal with normal pulses in the right upper extremity Const: Vital Signs, click to edit/add: Vital Signs - 24 hr 12/28/22 10:28 Temperature 97.2 F L Pulse Rate [Left P ulse Oximeter] 84 Respiratory Rate 16 Blood Pressure [Ri ght Upper Arm] 127/79 Pulse Oximetry 95 Oxygen Delivery Me thod Room Air Course Course Hospital Course: I discussed with the patient, her x-ray did show some narrowing at C5-C6, no evidence of any acute fracture, or other significant abnormality. Is noted. I think it would be reasonable to put her on some medications for this including Flexeril, Toradol IM. And also Medrol Dosepak. Follow-up with primary care suggested within the week if not improving, went over signs symptoms of worsening informed consent risks benefits given or medication. Vital Signs Vital signs: Initial Vital Signs Temperature 97.2 F L 12/28/22 10:28 Temperature Source Temporal Artery Scan 12/28/22 10:28 Pulse Rate 84 12/28/22 10:28 Pulse Rhythm Regular 12/28/22 10:28 Respiratory Rate 16 12/28/22 10:28 Blood Pressure 127/79 12/28/22 10:28 Blood Pressure Mean 95 12/28/22 10:28 Blood Pressure Position Sitting 12/28/22 10:28 Pulse Oximetry 95 12/28/22 10:28 Oxygen Delivery Method Room Air 12/28/22 10:28 Vital Signs Temperature 97.2 F L 12/28/22 10:28 Pulse Rate 84 12/28/22 10:28 Respiratory Rate 16 12/28/22 10:28 Blood Pressure 127/79 12/28/22 10:28 Pulse Oximetry 95 12/28/22 10:28 Oxygen Delivery Method Room Air 12/28/22 10:28 Temperature 97.2 F L 12/28/22 10:28 Pulse Rate 84 12/28/22 10:28 Respiratory Rate 16 12/28/22 10:28 Blood Pressure 127/79 12/28/22 10:28 Pulse Oximetry 95 12/28/22 10:28 Oxygen Delivery Method Room Air 12/28/22 10:28 MDM - Neck Pain/Injury MDM Narrative Medical decision making narrative: At this point I discussed with her we will do an x-ray, I will assess her disc spaces, this sounds to be more like a discogenic what could be just related to mechanical cervical pain. Differential Diagnosis Differential diagnosis: Likely disc disorder of cervical region, cervical radiculopathy, vertebral artery dissection, cervical spondylosis and strain of neck muscle Medical Records Attestation: I reviewed the patient's medical records. Imaging Data Cervical spine x-ray: Attestation: I have reviewed the pertinent imaging results. My impression: No acute fracture noted, there is some C5-C6 narrowing, a little bit C6-C7, swimmer's view had to be applied due to the size the shoulders, she also has some left-sided torticollis secondary to muscle spasm. Discharge Plan Discharge Clinical Impression: Disc disorder of cervical region, Strain of neck muscle Patient Disposition: Home, Self-Care Condition: Stable Instructions: Cervical Strain (DC), Muscle Strain (DC), Cervical Disc Herniation (ED), Neck Pain (ED) Additional Instructions: Home rest use of ice avoidance of chiropractic manipulation is suggested, ibuprofen 600 mg 3 times a day, with the Tylenol. Prescription given for Medrol Dosepak along with muscle relaxant Flexeril. Risks benefits and side effects of this include sedation, so please do not drink alcohol or drive machines. Activity Level: Light activity Prescriptions: New methylprednisolone [Medrol (Michael)] 4 mg tablets,dose pack See Rx Instructions .ROUTE .COMPLEX Qty: 21 0RF Rx Instructions: orally per package directions cyclobenzaprine 10 mg tablet 10 mg PO TID PRN (Reason: muscle spasm) Qty: 30 0RF No Action venlafaxine 150 mg capsule,extended release 24hr 150 mg PO QDAY Qty: 90 4RF Patient Comments: TAKE 1 CAPSULE (150MG) BY MOUTH ONCE DAILY venlafaxine 75 mg capsule,extended release 24hr 75 mg PO QDAY Qty: 30 4RF Patient Comments: TAKE ONE CAPSULE (75MG) BY MOUTH ONCE DAILY ALONG WITH 1-150MG CAP FOR TOTAL DOSE OF 225MG rosuvastatin 10 mg tablet 10 mg PO QDAY Qty: 90 4RF Patient Comments: TAKE ONE TABLET BY MOUTH DAILY propranolol 20 mg tablet 40 mg PO QDAY Qty: 180 4RF Patient Comments: TAKE TWO TABLETS(40MG) BY MOUTH DAILY oxybutynin chloride 5 mg tablet 5 mg PO QDAY Qty: 90 4RF Patient Comments: TAKE ONE TABLET BY MOUTH DAILY famotidine 20 mg tablet 20 mg PO QDAY Qty: 90 4RF Patient Comments: TAKE ONE TABLET BY MOUTH DAILY ibuprofen 800 mg tablet 800 mg PO Q8H PRN dupilumab 200 mg/1.14 mL pen injector 200 mg subcut Q2W albuterol sulfate 2.5 mg /3 mL (0.083 %) solution for nebulization 2.5 mg continuous nebulization Q6-8H PRN (Reason: shortness of breath or wh eezing) Patient Comments: USE ONE VIAL IN NEBULIZER EVERY FOUR HOURS NEEDED albuterol sulfate 90 mcg/actuation HFA aerosol inhaler 2 puff INHALATION Q6-8H PRN (Reason: shortness of breath or wheezing) Patient Comments: INHALE 2 PUFFS EVERY FOUR HOURS NEEDED fluticasone furoate-vilanterol [Breo Ellipta] 100-25 mcg/dose blister with device 1 inh INHALATION QDAY Patient Comments: INHALE 1 PUFF EVERY DAY AT THE SAME TIME EACH DAY RINSE AND SPIT AFTER USE (BUT DO NOT GARGLE). Spiriva Respimat 2.5 mcg/actuation mist 2 puff INHALATION QDAY Patient Comments: INHALE 2 PUFF BY INHALATION ROUTE EVERY DAY AT THE SAME TIME EACH DAY lorazepam 0.5 mg tablet 0.5 mg PO QDAY PRN (Reason: anxiety) Qty: 10 0RF Rx Instructions: 1 tab as needed for anxiety. Due for yearly med check, no more refills until seen in clinic promethazine 25 mg tablet See Rx Instructions .ROUTE .COMPLEX Qty: 10 0RF Dose Instruction: TAKE ONE TABLET BY MOUTH EVERY DAY NEEDED FOR NAUSEA AND VOMITING ASSOCIATED WITH MIGRAINES Rx Instructions: TAKE ONE TABLET BY MOUTH EVERY DAY NEEDED FOR NAUSEA AND VOMITING ASSOCIATED WITH MIGRAINES levonorgestrel-ethinyl estrad [Vienva] 0.1-20 mg-mcg tablet 1 tab PO QDAY Qty: 84 4RF montelukast 10 mg tablet 10 mg PO QDAY Qty: 90 3RF Patient Comments: TAKE ONE TABLET BY MOUTH AT BEDTIME Follow Up/Referrals: Khushboo Manning MD [Primary Care Provider] - Stand Alone Forms: [employer] Info Instructions
[2022-12-28] MEDS: KETOROLAC 30 MG/ML inj IM (11:45)
== END 2022-12-28 11:50 | disposition home or self-care (01) ==
PROVIDERS: Emergency Provider Family Medicine; PCP Family Medicine
DX: M50.90 Cervical disc disorder, unspecified, unspecified cervical region (principal); S16.1XXA Strain of muscle, fascia and tendon at neck level, initial encounter
CPT/HCPCS: 72040; 96372; 99283; 99284; J1885

== ENCOUNTER 2023-04-23 14:20 | Outpatient (CLI) | payer MEDICAID, SELFPAY | END 2023-04-23 14:21 | disposition home or self-care (01) | LOC: NFLDREF 14:22 | PROVIDERS: PCP Family Medicine; Visit Provider Family Medicine | DX: R79.89 Other specified abnormal findings of blood chemistry (principal) | CPT/HCPCS: 80053 ==

== ENCOUNTER 2023-06-24 15:52 | Emergency (ER) | payer MEDICARE, MEDICAID, SELFPAY ==
[2023-06-24 16:49] VITALS: BP 128/84; PULSE 95; RESP 18; TEMP 36.4; O2SAT 96; BMI 41.0
[2023-06-24 17:33] LABS: Appearance Urine Cloudy (Clear); Bilirubin Urine Negative (Negative); Blood Urine 2+ (Negative); Color Urine Yellow (Yellow); Glucose Urine Negative (Negative); Ketones Urine Trace (Negative); Leukocyte Esterase Urine 2+ (Negative); Nitrite Urine Negative (Negative); Protein Urine 1+ (Negative); Specific Gravity Urine >= 1.030 (1.000-1.030)
[2023-06-24 17:49] LABS: Bacteria Urine Moderate; Calcium Oxalate Crystals Urine Moderate; RBC Urine 0-2 (0-2); Squamous Epithelial Cell Urine Moderate (None-Few); WBC Urine 50-100 (0-5)
--- OUTSIDE RECORDS SUMMARY | 2023-06-24 19:39 | XMS_ITS | Clinical Summary ---
Author Name Unknown Organization [facility] Address [place], [place] [address] Care Team Providers Care Data Management Name Role Phone Khushboo Manning MD Primary Care Provider + Allergies Active Allergy Reactions Criticality Noted Date Comments Cats (Fur, Dander, Saliva) Shortness Of Breath 07/13/2012 Unlisted Allergen (Include Detail In Comments) Other - Describe In Comment Field 02/10/2012 Pollen and dust-itchy eyes and nasal congestion Medications Medication Sig Dispensed Refills Start Date End Date Status MULTIVITAMIN ORAL Once daily 0 10/09/2006 Active Nebulizer Accessories 1 Kit 0 07/13/2012 Active PROAIR HFA 90 mcg/actuation inhalerIndications :Cough INHALE ONE OR TWO PUFFS BY MOUTH EVERY FOUR HOURS NEEDED 1 Inhaler 1 05/25/2015 Active montelukast (SINGULAIR) 10 mg tabletIndications: Mild persistent asthma with acute exacerbation Take 1 tablet by mouth at bedtime. 90 tablet 3 09/22/2015 Active oxybutynin (DITROPAN) 5 mg tabletIndications: Unspecified urinary incontinence Take 1 tablet by mouth once daily. 90 tablet 3 09/22/2015 Active propranolol (INDERAL) 40 mg tabletIndications: Headache, unspecified headache type Take 1 tablet by mouth once daily. 90 tablet 3 09/22/2015 Active mometasone (ASMANEX TWISTHALER) 220 mcg (14 doses) aepbIndications:Mi ld persistent asthma with acute exacerbation Inhale 2 Puffs by mouth 2 times daily. 1 canister 12 09/22/2015 Active acetaminophen-abisai etheptane-dichlora lphenazone, 325-65-100 mg, (MIDRIN) 65-100-325 mg capsuleIndications :Migraine without status migrainosus, not intractable, unspecified migraine type Take 1 capsule by mouth 4 times daily if needed for Migraine. Max acetaminophen dose: 4000mg in 24 hrs. 10 capsule 0 09/22/2015 Active ranitidine (ZANTAC) 150 mg tabletIndications: PUD (peptic ulcer disease) Take 1 tablet by mouth 2 times daily. 60 tablet 12 09/22/2015 Active venlafaxine (EFFEXOR) 75 mg tabletIndications: Depressive disorder,Generaliz ed anxiety disorder TAKE TWO TABLETS BY MOUTH TWICE DAILY 10 tablet 0 10/19/2015 Active venlafaxine (EFFEXOR) 75 mg tabletIndications: Dysthymic disorder,Generaliz ed anxiety disorder Take 1 tab by mouth BID for 5 days, then 2 tabs BID as tolerated 120 tablet 2 11/28/2015 Active zaleplon (SONATA) 5 mg capsuleIndications :Generalized anxiety disorder Take 1 capsule by mouth every HS prn sleep 30 Cap 2 11/28/2015 Active LORazepam (ATIVAN) 0.5 mg tabIndications:Gen eralized anxiety disorder Take one-half tablet by mouth up to twice daily as needed for acute anxiety. 30 tablet 2 11/28/2015 Active Hospital, Clinic, or Other Facility Administered Medication Ordered Dose Route Frequency Start Date End Date Status levonorgestrel intrauterine device 1 Device (MIRENA)Indications:Encounter for IUD insertion 1 Device IU Q 5 YEARS 10/02/2015 Active Active Problems Problem Noted Date Diagnosed Date Migraine without status migrainosus, not intract able 09/22/2015 Moderate major depression 05/25/2015 Grief reaction 06/07/2014 Generalized anxiety disorder 12/19/2011 Rule out Obsessive-compulsive disorders 12/19/19 12 Shortness of breath 12/09/2011 Irritable bowel syndrome 03/06/2007 Headache(784.0) 03/06/2007 Peptic ulcer, unspecified si te, unspecified as acute or chronic, without mention of hemorrhage, perforation, or obstruction 03/06/2007 Mild intellectual disabilities 06/26/2006 Unspecified urinary incontinence 06/26/2006 Chronic serous OM (otitis media) Overview: Sees Dr. Yang Resolved Problems Problem Noted Date Diagnosed Date Resolved Date Depressive disorder, not elsewhere classified 06/26/19 07 05/25/2015 Encounters Date Type Department Care Team Description 05/02/2023 Lab Requisition [facility] [phone] Yelena Palma MD from Last 3 Months Immunizations Name Administration Dates Next Due Hepatitis B (Adult) 06/25/2006,03/25/2002 Hepatitis B (Peds) 02/01/1999 Human Papilloma Virus Vaccine 01/31/2009, 009,07/28/2008 Influenza, IIV3 (Age >=3 years) 03/11/20 13,01/28/2012,02/07/2009,2007 Influenza, IIV4 03/10/2014 Pneumococcal Poly,23-Valent (Pneumovax) 03/11/2013 Td (Age >=7 Years) 06/25/2006 Tdap 09/22/2015 Family History Medical History Relation Name Comments Other Father ALS Diabetes Maternal Grandfather Heart Disease Maternal Grandfather Cancer Maternal Grandmother ovarian Asthma Sister Psychiatric illness Sister depressi on Relation Name Status Comments Father Maternal Grandfather Maternal Grandmother Sister Social History Tobacco Use Types Packs/Day Years Used Date Smoking Tobacco: Never Smokeless Tobacco: Never Tobacco Cessation:Counseling Given: Yes Alcohol Use Standard Drinks/Week Comments No 0 (1 standard drink = 0.6 oz pur e alcohol) Sex and Gender Information Value Date Recorded Sex Assigned at Not on file Gender Identity Not on file Sexual Orientation Not on file Obstetrics History Para Term AB IAB SAB Ectopic Multiple Livin g Live Births 0 0 0 0 0 0 0 0 0 0 Last Filed Vital Signs Vital Sign Reading Time Taken Comments Blood Pressure 133/79 11/28/2015 3:30 PM CDT Pulse 80 11/28/2015 3:30 PM CDT Temperature 37.1 ??C (98.7 ??F) 10/02/2015 8:47 AM CD T Respiratory Rate 18 10/14/2012 9:48 AM CDT Oxygen Saturation 98% 10/02/2015 8:47 AM CDT Inhaled Oxygen Concentration - - Weight 84.9 kg (187 lb 3.2 oz) 11/28/2015 3:30 P M CDT Height 156.8 cm (5' 1.73) 10/02/2015 8:47 AM CD T Body Mass Index 34.54 10/02/2015 8:47 AM CDT Plan of Treatment Health Maintenance Due Date Last Done Comments HIV for age 15-65 1997 Hepatitis C screening for age 18-79 2000 BMI (ht and wt on same day) for age 18+ 10/01/2016 10/02/2015, 09/22/2015 Depression screening for age 12+ 11/27/2016 11/28/2015, 09/22/2015 COVID-19 vaccine series ( season) 2023 07/12/2020, 06/17/2020 Influenza for age 9-49 01/17/2023 4, 03/11/2013, 01/28/2012, Additional history exists Tetanus booster 09/21/2025 09/22/2015, 06/25/2006 Pap test for age 21-65 12/05/2025 3, 12/05/2022, 08/19/2017, Additional history exists Pneumococcal series for age 6-64 Aged Out 03/11/2013 No longer eligible based on patient's age to complete this topic Tdap Completed 09/22/2015 Procedures Procedure Name Priority Date/Time Associated Diagnosis Comments LAB TRACKING EVENT Routine 05/02/2023 8: 40 AM LOCKSTITCH BINDER PATH TISSUE EXAM Routine 05/02/2023 8:40 AM LOCKSTITCH BINDER from Last 3 Months Results * LAB TRACKING EVENT (05/02/2023 8:40 AM LOCKSTITCH BINDER) Other (Other) Client Collect / Unknown 05/02/2023 8:40 AM LOCKSTITCH BINDER 05/02/2023 3:28 PM [facility]STITCH BINDER Yelena Palma MD LAB BILL O NLY [facility] [address] [place] [address], * PATH TISSUE EXAM (05/02/2023 8:40 AM LOCKSTITCH BINDER) Case Report Pathology Report ?Case: [id number] ? Authorizing Provider: ??Yelena Palma ??Collected: ? 05/02/2023 0840 ? M, MD ? Ordering Location: ? [facility] ?Received: ?05/02/2023 1629 ? Pathologist: ? Kong Zelaya MD ? Specimens: ?? A) - Cervical ? B) - Endocervical ? 05/05/2023 3:55 PM [facility]ST[facility]ER [facility] Final Diagnosis A) CERVIX, BIOPSY: 1. Benign cervical mucosa ? a. Sampling: Ectocervix and endocervix ?? b. Transformation zone: Present 2. Negative for glandular neoplasia, squamous intraepithelial lesion, ?? and malignancy B) ENDOCERVIX, CURETTAGE: 1. Fragments of benign endocervical tissues 2. Negative for glandular neoplasia, squamous intraepithelial lesion, and malignancy 05/05/2023 3:55 PM [facility]ST[facility]ER [facility] Comment The previous Pap smear was reported to be negative for intraepithelial lesion but tested positive for HPV. 05/05/2023 3:55 PM [facility]ST[facility] B[facility]ER [facility] Clinical Information Last Pap smear was December 05, 2022. The Pap was negative for intraepithelial lesion but tested positive for HPV. 05/05/2023 3:55 PM [facility]ST[facility] B[facility]ER [facility] Gross Description A) Received in formalin, labeled with the patient's name and cervical biopsy, is a single [place] tissue fragment measuring 0.7 cm in greatest dimension. ??The specimen is entirely submitted in 1 cassette. B) Received in formalin, labeled with the patient's name and endocervical curettings, is a 1.7 x 0.9 x 0.2 cm aggregate of blood tinged mucous. The specimen is entirely submitted in 1 cassette. EKW 05/02/2023 05/05/2023 3:55 PM [facility]STITCH B[facility]ER [facility] Microscopic Description The final diagnosis is based on microscopic examination of appropriate sections of all specimens. 05/05/2023 3:55 PM [facility]ST[facility] B[facility]ER [facility] Additional Information Interpreted at [facility] - [address] [facility] [address], [place] [address] 05/05/2023 3:55 PM [facility]STITCH BINDER [facility] Other ENDOCERVICAL CYTOLOGIC MATERIAL / Unknown 05/02/2023 8:40 AM L[facility]STITCH BINDER 05/02/2023 4:29 PM L[facility]STITCH BINDER Specimen (specimen) ENDOCERVICAL CYTOLOGIC MATERIAL / Unknown 05/02/2023 8:40 AM LOCKSTITCH BINDER 05/02/2023 4:29 PM L[facility]STITCH BINDER Yelena Palma MD PATHOLOGY/ CYTOLOGY [facility] [address] [place] [address], [place] from Last 3 Months Care Teams Data Management Relationship Specialty Start Date End Date Khushboo Manning MD [address] [place] [address] PCP - General Family Practice 03/08/22
[2023-06-24 19:50] LABS: Basophils Percent Auto 0.3 % (0.0-3.0); Eosinophils Percent Auto 1.8 % (0.0-7.0); Hemoglobin* 15.7 gm/dL (12.0-16.0); Immature Granulocytes Pct Auto 0.7 %; Lymphocytes Percent Auto 23.5 % (20-44); Mean Corpuscular HGB Conc 33 gm/dL (32-36); Mean Corpuscular Hemoglobin 27 pg (26-34); Mean Corpuscular Volume 80 fL (80-100); Monocytes Percent Auto 6.7 % (0.0-11.0); Platelet Count* 403 K/uL (140-440); RDW Coefficient of Variation % 12.9 % (11.5-15.5); Red Blood Count 5.89 m/uL (4.00-5.20); White Blood Count* 14.09 K/uL (4.50-11.00)
[2023-06-24] MEDS: ONDANSETRON 2 MG/ML inj 4 MG IVP (19:55)
[2023-06-24] MEDS: 0.9 % SODIUM CHLORIDE 1000 ml 1,000 ML IV (19:55)
[2023-06-24 19:56] VITALS: BP 121/76; PULSE 97; RESP 18; TEMP 37.3; O2SAT 98
[2023-06-24 19:56] LABS: Slide Review Reflex No
[2023-06-24 20:12] LABS: Chloride* 106 mmol/L (96-114); Potassium* 3.4 mmol/L (3.6-5.1); Sodium* 142 mmol/L (135-149)
[2023-06-24 20:15] LABS: Anion Gap 11 mEq/L (7-15); Blood Urea Nitrogen* 8 mg/dL (5-24); Carbon Dioxide* 25 mmol/L (20-32); Creatinine* 0.6 mg/dL (0.5-1.5); Est. Creatinine Clearance* 88.63; Estimated Glomerular Filt Rate 116 ml/min
[2023-06-24 20:16] LABS: Calcium* 9.9 mg/dL (8.4-10.6); Glucose* 102 mg/dL (60-115)
--- NOTE | 2023-06-24 20:22 | ED.GENADULT ---
HPI - General Adult General Date Seen: 06/24/23 Chief complaint: Urogenital Problems, Female Stated complaint: uti, vomiting, chills, fever Time Seen by Provider: 06/24/23 19:14 Source: patient, RN notes reviewed and old records reviewed Mode of arrival: ambulatory Limitations: no limitations History of Present Illness HPI narrative: Patient is a 43-year-old woman who presents for evaluation of ongoing urinary symptoms. She initially developed symptoms about a week ago of dysuria, frequency, urgency, consistent with prior UTIs. She sought care by an E visit on the 17 of June, and was advised that she should be seen in person as a lab would be needed. She says that she felt too uncomfortable to leave her house so instead she sought care by an E visit again on the and at that time was prescribed Macrobid. She completed the course, she says she has ongoing dysuria frequency urgency, she has had some vomiting, she has felt hot and cold. She denies any abdominal or flank pain. She has no history of kidney stones. Related Data Home Medications Medication Instructions Recorded Confirmed dupilumab 200 mg/1.14 mL 200 mg subcut Q2W 02/25/22 05/02/23 subcutaneous pen injector fluticasone furoate 100 1 inh inhalation QDAY 02/25/22 05/02/23 mcg-vilanterol 25 mcg/dose inhalation powder (Breo Ellipta) tiotropium bromide 2.5 2 puff inhalation QDAY 02/25/22 05/02/23 mcg/actuation mist for inhalation (Spiriva Respimat) Previous Rx's Medication Instructions Recorded famotidine 20 mg tablet 20 mg PO QDAY #90 tabs 12/05/22 oxybutynin chloride 5 mg tablet 5 mg PO QDAY #90 tabs 12/05/22 propranolol 20 mg tablet 40 mg (2 x 20 mg) PO QDAY #180 tabs 12/05/22 rosuvastatin 10 mg tablet 10 mg PO QDAY #90 tabs 12/05/22 venlafaxine 150 mg 150 mg PO QDAY #90 caps 12/05/22 capsule,extended release 24 hr levonorgestrel-ethinyl estradiol 1 tab PO QDAY #84 tabs 12/19/22 0.1 mg-20 mcg tablet (Vienva) montelukast 10 mg tablet 10 mg PO QDAY #90 tabs 12/19/22 cyclobenzaprine 10 mg tablet 10 mg PO TID PRN muscle spasm #30 12/28/22 tabs lorazepam 0.5 mg tablet 0.5 mg PO QDAY PRN anxiety #30 tabs 03/26/23 albuterol sulfate 90 mcg/actuation 2 puff inhalation Q6-8H PRN 03/27/23 aerosol inhaler shortness of breath or wheezing #6.7 grams ibuprofen 800 mg tablet 800 mg PO Q8H PRN pain #30 tabs 05/07/23 venlafaxine 75 mg capsule,extended 75 mg PO QDAY #90 caps 05/07/23 release 24 hr terbinafine HCl 1 % topical cream 1 applic topical BID #30 grams 05/08/23 albuterol sulfate 2.5 mg/3 mL 2.5 mg (3 mL) continuous 05/30/23 (0.083 %) solution for nebulization nebulization Q6-8H PRN shortness of breath or wheezing #75 mL promethazine 25 mg tablet See Rx Instructions .Route 06/02/23 .COMPLEX #20 tabs Allergies Allergy/AdvReac Type Severity Reaction Status Date / Time Dust mites Allergy Mild itchy eyes Uncoded 05/02/23 07:57 and swollen, SOB Pollen Allergy Mild itchy Uncoded 05/02/23 07:57 eyes, SOB Review of Systems Status of ROS: Reports: 10 or more systems reviewed and unremarkable except as noted in History and below [facility] Medical History Obesity (BMI 30-39.9) (2010) ?E66.9 - Obesity, unspecified (ICD-10) Dyslipidemia ?E78.5 - Hyperlipidemia, unspecified (ICD-10) Morbid obesity with BMI of 45.0-49.9, adult ?E66.01 - Morbid (severe) obesity due to excess calories (ICD-10) ?Z68.42 - Body mass index [BMI] 45.0-49.9, adult (ICD-10) Depression ?F32.A - Depression, unspecified (ICD-10) Paronychia Obstructive sleep apnea treated with continuous positive airway pressure (CPAP) (07/2021) ?G47.33 - Obstructive sleep apnea (adult) (pediatric) (ICD-10) ?Z99.89 - Dependence on other enabling machines and devices (ICD-10) Moderate persistent asthma (2011) ?J45.40 - Moderate persistent asthma, uncomplicated (ICD-10) Migraine headache (2009) ?G43.909 - Migraine, unspecified, not intractable, without status migrainosus (ICD-10) Chronic gastroesophageal reflux disease ?K21.9 - Gastro-esophageal reflux disease without esophagitis (ICD-10) Chronic diarrhea (12/02/08) ?K52.9 - Noninfective gastroenteritis and colitis, unspecified (ICD-10) Surgical History Hx of tympanostomy tubes ?Z98.890 - Other specified postprocedural states (ICD-10) History of carpal tunnel surgery of left wrist (2017) ?Z98.890 - Other specified postprocedural states (ICD-10) Family History Maternal Grandmother Breast cancer Stroke Maternal Grandfather Diabetes Myocardial infarction, Onset Age: 80 Mother Diabetes Social History Narrative: Single, assisted living [place], has boyfriend Does not drink alcohol Does not have regular exercise regimen Non-smoker What is your current living situation?: I have a place to live at present, but am concerned about future Problems where you live: oven or stove not working In the past 12 months, utilities in danger of being shut off: no In past 12 months, lack of transportation kept you from medical appts, meetings, work, or getting things needed for daily living: yes In the past 12 mos, have been you worried that your food would run out before you had money to buy more?: never true In the past 12 mos, the food you bought just didn't last and you didn't have money to buy more?: never true Smoking Status: Never smoker Do you use any of these nicotine containing products: None Second hand tobacco smoke exposure: No How often do you have a drink containing alcohol: never AUDIT-C Alcohol total score: 0 Non-prescribed substance use: denies use How often does anyone, including family, friends and others, physically hurt you: never How often does anyone, including family, friends and others, insult or talk down to you: never How often does anyone, including family, friends and others, threaten you with harm: never How often does anyone, including family, friends and others, scream or curse at you: never Little interest or pleasure in doing things: more than half the days Feeling down, depressed, or hopeless: more than half the days service: No Exam Narrative: Exam Narrative: Vital signs as noted above. In general, an alert, well-appearing patient. Head: Normocephalic, atraumatic. Eyes: Pupils are equal reactive. Extraocular movements are full. Conjunctivae are normal. ENT: Mucous membranes are moist. Throat is normal. Neck: Supple without lymphadenopathy. Heart: Regular rate and rhythm. No murmur or rub. Lungs: Clear bilaterally. No increased work of breathing, crackles or wheezes. Abdomen: Soft and nontender. No CVA tenderness. Extremities: Well perfused. No edema. No calf tenderness. Pulses intact. Neurologic: Patient is alert and oriented to person and place. Speech is fluent. Face is symmetric. Moves all extremities equally. Affect: Normal. Skin: Warm and dry. Well perfused. Const: Vital Signs, click to edit/add: Vital Signs - 24 hr 06/24/23 16:49 06/24/23 19:56 Temperature 97.6 F 99.2 F Pulse Rate [Pulse Oximeter] 95 97 Respiratory Rate 18 18 Blood Pressure [Ri ght Upper Arm] 128/84 121/76 Pulse Oximetry 96 98 Oxygen Delivery Me thod Room Air Room Air Documenting provider has reviewed patient's vital signs: yes Course Course ED Course: Records were reviewed. Unfortunately, there is no urine culture to guide treatment. My presumption is that she has an organism resistant to Macrobid. I do not see anything on her history exam to suggest kidney stones. Her urinalysis continues to look infected with 50-100 white blood cells but no red blood cells. Her serum white blood cell count is 14, diff is unremarkable. Metabolic panel shows a creatinine of 0.6. Potassium is minimally low at 3.4 otherwise metabolic panel is normal. Lactate is reassuring at 1. She did have a L saline here as well as some Zofran. CRP is still pending, plan well however be to start her on Cipro for home use, pretty am if needed for UTI symptoms. At the present time she is not having any flank pain or CVA tenderness to suggest pyelonephritis although with her feeling more systemically ill certainly this is a possibility. I do not see any parameter suggesting need for hospitalization however. Discharge home with Cipro and Pyridium. Return for worsening such as flank pain, vomiting, high fevers. Urine culture pending. Vital Signs Vital signs: Initial Vital Signs Temperature 97.6 F 06/24/23 16:49 Temperature Source Temporal Artery Scan 06/24/23 16:49 Pulse Rate 95 06/24/23 16:49 Pulse Rhythm Regular 06/24/23 16:49 Respiratory Rate 18 06/24/23 16:49 Blood Pressure 128/84 06/24/23 16:49 Blood Pressure Mean 98 06/24/23 16:49 Blood Pressure Position Sitting 06/24/23 16:49 Pulse Oximetry 96 06/24/23 16:49 Oxygen Delivery Method Room Air 06/24/23 16:49 Vital Signs Temperature 97.6 F 06/24/23 16:49 Pulse Rate 95 06/24/23 16:49 Respiratory Rate 18 06/24/23 16:49 Blood Pressure 128/84 06/24/23 16:49 Pulse Oximetry 96 06/24/23 16:49 Oxygen Delivery Method Room Air 06/24/23 16:49 Temperature 99.2 F 06/24/23 19:56 Pulse Rate 97 06/24/23 19:56 Respiratory Rate 18 06/24/23 19:56 Blood Pressure 121/76 06/24/23 19:56 Pulse Oximetry 98 06/24/23 19:56 Oxygen Delivery Method Room Air 06/24/23 19:56 Medications Administered Medications: Discontinued Medications Generic Name Dose Route Start Last Admin Trade Name Freq PRN Reason Stop Dose Admin Sodium Chloride 1,000 mls @ 1,000 mls/hr 06/24/23 19:45 06/24/23 20:53 0.9 % Sodium Chloride 1000 Ml IV 06/24/23 20:44 Infused .Q1H CARROL Infusion Ondansetron HCl 4 mg 06/24/23 19:32 06/24/23 19:55 Ondansetron 2 Mg/Ml Inj IVP 06/24/23 19:33 4 mg ONCE ONE Administration Medical Decision Making Lab Data Labs: Lab Results 06/24/23 06/24/23 Range/Units 16:55 19:42 WBC 14.09 H (4.50-11.00) K/uL RBC 5.89 H (4.00-5.20) m/uL Hgb 15.7 (12.0-16.0) gm/dL Hct 47.0 (33.0-51.0) % MCV 80 (80-100) fL MCH 27 (26-34) pg MCHC 33 (32-36) gm/dL RDW Coeff of Calvin 12.9 (11.5-15.5) % Plt Count 403 (140-440) K/uL Neut % (Auto) 67.0 (42.0-72.0) % Lymph % (Auto) 23.5 (20-44) % Hinds % (Auto) 6.7 (0.0-11.0) % Eos % (Auto) 1.8 (0.0-7.0) % Baso % (Auto) 0.3 (0.0-3.0) % Neut # (Auto) 9.40 H (1.7-7.0) K/uL Lymph # (Auto) 3.30 H (0.90-2.90) K/uL Hinds # (Auto) 0.90 (0.00-0.90) K/UL Eos # (Auto) 0.30 (0.00-0.50) K/uL Baso # (Auto) 0.00 (0.00-0.30) K/uL Abs Immat Gran (auto) 0.10 (0.00-0.30) K/uL Imm/Tot Granulo (auto) 0.7 % Sodium 142 (135-149) mmol/L Potassium 3.4 L (3.6-5.1) mmol/L Chloride 106 (96-114) mmol/L Carbon Dioxide 25 (20-32) mmol/L Anion Gap 11 (7-15) mEq/L BUN 8 (5-24) mg/dL Creatinine 0.6 (0.5-1.5) mg/dL Estimated Creat Clear 88.63 Estimated GFR 116 ml/min Glucose 102 (60-115) mg/dL Lactate 1.0 (0.5-1.9) mmol/L Calcium 9.9 (8.4-10.6) mg/dL C-Reactive Protein 3.0 H (0.5-1.0) mg/dL Urine Color Yellow (Yellow) Urine Appearance Cloudy A (Clear) Urine pH 6.0 (5.0-8.5) Ur Specific Council >= 1.030 (1.000-1.030) Urine Protein 1+ A (Negative) Urine Glucose (UA) Negative (Negative) Urine Ketones Trace A (Negative) Urine Blood 2+ A (Negative) Urine Nitrite Negative (Negative) Urine Bilirubin Negative (Negative) Urine Urobilinogen 2.0 A (0.2-1.0) Ur Leukocyte Esterase 2+ A (Negative) Urine RBC 0-2 (0-2) Urine WBC 50-100 A (0-5) Ur Squamous Epith Cells Moderate A (None-Few) Calcium Oxalate Crystal Moderate A (None) Urine Bacteria Moderate A (None) Discharge Plan Discharge Clinical Impression: UTI (urinary tract infection) Patient Disposition: Home, Self-Care Condition: Improved Instructions: Urinary Tract Infection in Women (DC) Additional Instructions: Antibiotic as prescribed. Urine culture is pending, if an organism grows that is resistant to this elected antibiotic, we will call you. Pyridium if needed for symptoms of burning, urgency, frequency etcetera. If you have high fevers, vomiting, flank pain, or other worsening, return for re-evaluation. Prescriptions: No Action venlafaxine 150 mg capsule,extended release 24hr 150 mg PO QDAY Qty: 90 4RF Patient Comments: TAKE 1 CAPSULE (150MG) BY MOUTH ONCE DAILY rosuvastatin 10 mg tablet 10 mg PO QDAY Qty: 90 4RF Patient Comments: TAKE ONE TABLET BY MOUTH DAILY propranolol 20 mg tablet 40 mg PO QDAY Qty: 180 4RF Patient Comments: TAKE TWO TABLETS(40MG) BY MOUTH DAILY oxybutynin chloride 5 mg tablet 5 mg PO QDAY Qty: 90 4RF Patient Comments: TAKE ONE TABLET BY MOUTH DAILY famotidine 20 mg tablet 20 mg PO QDAY Qty: 90 4RF Patient Comments: TAKE ONE TABLET BY MOUTH DAILY dupilumab 200 mg/1.14 mL pen injector 200 mg subcut Q2W cyclobenzaprine 10 mg tablet 10 mg PO TID PRN (Reason: muscle spasm) Qty: 30 0RF fluticasone furoate-vilanterol [Breo Ellipta] 100-25 mcg/dose blister with device 1 inh INHALATION QDAY Patient Comments: INHALE 1 PUFF EVERY DAY AT THE SAME TIME EACH DAY RINSE AND SPIT AFTER USE (BUT DO NOT GARGLE). Spiriva Respimat 2.5 mcg/actuation mist 2 puff INHALATION QDAY Patient Comments: INHALE 2 PUFF BY INHALATION ROUTE EVERY DAY AT THE SAME TIME EACH DAY levonorgestrel-ethinyl estrad [Vienva] 0.1-20 mg-mcg tablet 1 tab PO QDAY Qty: 84 4RF montelukast 10 mg tablet 10 mg PO QDAY Qty: 90 3RF Patient Comments: TAKE ONE TABLET BY MOUTH AT BEDTIME lorazepam 0.5 mg tablet 0.5 mg PO QDAY PRN (Reason: anxiety) Qty: 30 0RF Rx Instructions: 1 tab as needed for anxiety. albuterol sulfate 90 mcg/actuation HFA aerosol inhaler 2 puff INHALATION Q6-8H PRN (Reason: shortness of breath or wheezing) Qty: 6.7 0RF Rx Instructions: patient needs to be seen before any future refills venlafaxine 75 mg capsule,extended release 24hr 75 mg PO QDAY Qty: 90 0RF Patient Comments: TAKE ONE CAPSULE (75MG) BY MOUTH ONCE DAILY ALONG WITH 1-150MG CAP FOR TOTAL DOSE OF 225MG ibuprofen 800 mg tablet 800 mg PO Q8H PRN (Reason: pain) Qty: 30 2RF terbinafine HCl 1 % cream 1 applic topical BID Qty: 30 0RF Rx Instructions: apply to rash twice a day x 4 weeks albuterol sulfate 2.5 mg /3 mL (0.083 %) solution for nebulization 2.5 mg continuous nebulization Q6-8H PRN (Reason: shortness of breath or wheezing) Qty: 75 0RF promethazine 25 mg tablet See Rx Instructions .ROUTE .COMPLEX Qty: 20 0RF Dose Instruction: TAKE ONE TABLET BY MOUTH EVERY DAY NEEDED FOR NAUSEA AND VOMITING ASSOCIATED WITH MIGRAINES Rx Instructions: TAKE ONE TABLET BY MOUTH EVERY DAY NEEDED FOR NAUSEA AND VOMITING ASSOCIATED WITH MIGRAINES Follow Up/Referrals: Khushboo Manning MD [Primary Care Provider] - Stand Alone Forms: [employer] Info Instructions
== END 2023-06-24 20:56 | disposition home or self-care (01) ==
PROVIDERS: Emergency Provider Emergency Medicine; PCP Family Medicine
DX: N39.0 Urinary tract infection, site not specified (principal)
CPT/HCPCS: 36415; 80048; 81001; 83605; 85025; 86140; 87086; 96374; 99284; J2405; J7030

== ENCOUNTER 2023-07-31 13:48 | Outpatient (CLI) | payer MEDICARE, MEDICAID, SELFPAY ==
--- NOTE | 2023-07-31 14:00 | MM_ITS ---
Patient: RILEY PEACE Facility:?[facility] Patient ID:?[id number] Site Patient ID:?[id number]. Site :?[id number] Study:?XRay-Breast Bilateral 3D W/CAD-07/31/2023 4:06:30 PM Ordering Physician:Kristopher Final Report: BILATERAL DIGITAL SCREENING MAMMOGRAM WITH COMPUTER-AIDED DETECTION AND TOMOSYNTHESIS 07/31/2023 CLINICAL HISTORY: Routine screening exam. COMPARISON: None. TECHNIQUE: Digital mammogram in CC and MLO projections including computer-aided detection (CAD) and tomosynthesis. BREAST COMPOSITION: Scattered fibroglandular densities. FINDINGS: RIGHT Breast: No suspicious findings LEFT Breast: Focal asymmetric density upper outer quadrant 9 cm from the nipple. IMPRESSION: LEFT breast asymmetry/mass. RECOMMENDATIONS: Additional mammographic views of the LEFT breast including 3D spot-compression CC/MLO. LEFT breast ultrasound may also be required. The [facility] will contact the patient for follow-up. A lay language report of this examination will be provided to the patient. BI-RADS Category 0: Incomplete: Need Additional Imaging Evaluation and/or Prior Mammograms for Comparison. Dictated by Ronnie Toscano MD @ 08/01/2023 10:06:17 AM LINDSEY/joon DW/Dictated by: Ronnie Toscano MD @ 08/01/2023 10:06:00 AM Signed by:?Ronnie Toscano MD @08/01/2023 2:34:21 PM (Electronic Signature)
== END 2023-07-31 13:49 | disposition home or self-care (01) ==
PROVIDERS: PCP Family Medicine; Visit Provider Family Medicine
DX: Z12.31 Encounter for screening mammogram for malignant neoplasm of breast (principal); N63.20 Unspecified lump in the left breast, unspecified quadrant
CPT/HCPCS: 77063; 77067

== ENCOUNTER 2023-09-05 08:53 | Outpatient (CLI) | payer MEDICARE, MEDICAID, SELFPAY ==
--- NOTE | 2023-09-05 08:45 | MM_ITS ---
Patient: RILEY PEACE Facility:?[facility] Patient ID:?[id number] Site Patient ID:?[id number] Site :?1980 Study:?XRay-Breast Left 3D W/CAD-09/05/2023 11:27:40 AM Ordering Physician:Kristopher Final Report: DIGITAL DIAGNOSTIC LEFT MAMMOGRAM USING TOMOSYNTHESIS AND COMPUTER-AIDED DETECTION LEFT BREAST ULTRASOUND CLINICAL HISTORY: LEFT breast mass/asymmetry. COMPARISON: 07/31/2023. TECHNIQUE: Digital LEFT mammogram in two projections. Tomosynthesis and CAD utilized. Real-time ultrasound imaging of LEFT breast with imaging documentation. BREAST COMPOSITION: There are areas of scattered fibroglandular density. FINDINGS: 3D spot compression CC/MLO LEFT breast mammogram images submitted. No suspicious mass or architectural distortion. No suspicious calcifications. Targeted LEFT breast ultrasound performed 1 o`clock 8 cm from the nipple. Normal fibroglandular tissue is present. No suspicious mass or fibrocystic change. IMPRESSION: No suspicious findings. No evidence of malignancy. RECOMMENDATIONS: Routine annual BILATERAL screening mammography. Results and recommendations discussed with the patient. BI-RADS Category 1: Negative A lay language report of this examination will be provided to the patient. Dictated by Ronnie Toscano MD @ 09/05/2023 11:39:07 AM jj/Dictated by: Ronnie Toscano MD @ 09/05/2023 11:39:00 AM Signed by:?Ronnie Toscano MD @09/05/2023 3:02:26 PM (Electronic Signature)
--- OUTSIDE RECORDS SUMMARY | 2023-09-05 08:55 | XMS_ITS | Clinical Summary ---
Author Name Unknown Organization [facility] Address [place], [place] [address] Care Team Providers Care In Store Demonstrator Name Role Phone Khushboo Manning MD Primary [...] Encounters Date Type Department Care Team Description 07/04/2023 8:45 AM FOOD INSPECTOR - 07/04/2023 10:36 AM FOOD INSPECTOR Emergency [facility] [address] [facility] [place] [address] Cousins, Neptali Mackey MD Urinary tract infection without hematuria, site unspecified (Primary Dx) Discharge Disposition: Home Self Care 07/04/2023 Travel from Last 3 Months Immunizations Name Administration [...] Sign Reading Time Taken Comments Blood Pressure 145/88 07/04/2023 8:49 AM FOOD INSPECTOR Pulse 90 07/04/2023 8:49 AM FOOD INSPECTOR Temperature 36.3 ??C (97.4 ??F) 07/04/2023 8:49 AM CS T Respiratory Rate 18 07/04/2023 8:49 AM FOOD INSPECTOR Oxygen Saturation 99% 07/04/2023 8:49 AM FOOD INSPECTOR Inhaled Oxygen Concentration - - Weight 89.8 kg (198 lb) 07/04/2023 8:49 AM FOOD INSPECTOR Height 152.4 cm (5') 07/04/2023 8:49 AM FOOD INSPECTOR Body Mass Index 38.67 07/04/2023 8:49 AM FOOD INSPECTOR Plan of Treatment Health Maintenance Due Date Last Done Comments HIV for age 15-65 1997 Hepatitis C screening for age 18-79 2000 BMI (ht and wt on same day) for age 18+ 10/01/2016 10/02/2015, 09/22/2015 Depression screening for age 12+ 11/27/2016 11/28/2015, 09/22/2015 Influenza for age 9-49 01/18/2024 4, 03/11/2013, 01/28/2012, Additional history exists Tetanus booster 09/21/2025 09/22/2015, 06/25/2006 Pap test for age 21-65 12/05/2025 3, 12/05/2022, 08/19/2017, Additional history exists Pneumococcal series for age 6-64 Aged Out 03/11/2013 No longer eligible based on patient's age to complete this topic Tdap Completed 09/22/2015 COVID-19 vaccine series Completed 04/23/20 23, 04/18/2022, 07/12/2020, Additional history exists Procedures Procedure Name Priority Date/Time Associated Diagnosis Comments EKG 12 LEAD STAT 07/04/2023 9:21 AM FOOD INSPECTOR URINE CULTURE MINDY 07/04/2023 9:13 AM FOOD INSPECTOR URINALYSIS MICROSCOPIC STAT 07/04/2023 9:13 AM FOOD INSPECTOR UA W/ SEDIMENT EXAM REFLEXED PER CRITERIA STAT 07/04/2023 9:13 AM FOOD INSPECTOR CWS PATH REVIEW HEMATOLOGY STAT 07/04/2023 9:04 AM FOOD INSPECTOR RED CELL MORPHOLOGY STAT 07/04/2023 9 :04 AM FOOD INSPECTOR PLATELET ESTIMATE STAT 07/04/2023 9:0 4 AM FOOD INSPECTOR MANUAL DIFFERENTIAL STAT 07/04/2023 9 :04 AM FOOD INSPECTOR CBC WITH AUTO DIFFERENTIAL STAT 07/04/2023 9:04 AM FOOD INSPECTOR INFLUENZA A/B PCR STAT 07/04/2023 9:0 4 AM FOOD INSPECTOR COVID-19 MOLECULAR STAT 07/04/2023 9: 04 AM FOOD INSPECTOR ,SERUM STAT 07/04/2023 9:04 AM FOOD INSPECTOR LIPASE STAT 07/04/2023 9:04 AM FOOD INSPECTOR COMP METABOLIC PANEL STAT 07/04/2023 9:04 AM FOOD INSPECTOR CBC WITH AUTO DIFFERENTIAL STAT 07/04/2023 9:04 AM FOOD INSPECTOR HPV THIN PREP Routine 12/05/2022 1:30 PM CDT from Last 3 Months or Most Recently Relevant to Health Maintenance Results * EKG 12 LEAD (07/04/2023 9:21 AM FOOD INSPECTOR) Pathologist [facility] Interpretation Normal sinus rhythm Septal infarct , age undetermined Abnormal ECG No previous ECGs available BEYOND NOW Ventricular Rate 100 BPM BEYOND NOW Atrial Rate 100 BPM BEYOND NOW P-R Interval 130 ms BEYOND NOW QRS Duration 70 ms BEYOND NOW QT 346 ms BEYOND NOW QTc 446 ms BEYOND NOW P Gary 17 degrees BEYOND NOW R Gary 17 degrees BEYOND NOW T Gary 42 degrees BEYOND NOW 07/04/2023 9:21 AM FOOD INSPECTOR 07/04/2023 10:06 AM FOOD INSPECTOR Neptali Abdi MD EKG ORD BEYOND NOW [place], [place] * (ABNORMAL) URINALYSIS MICROSCOPIC (07/04/2023 9:13 AM FOOD INSPECTOR) RBC 0-2 0-2, None Seen /HPF 07/04/2023 9:30 AM FOOD INSPECTOR [facility] WBC 3-5 0-2, 3-5, None Seen /HPF 07/04/2023 9:30 AM FOOD INSPECTOR [facility] BACTERIA Moderate(A) None Seen, Rare, Few Bacteria/ HPF 07/04/2023 9:30 AM FOOD INSPECTOR [facility] EPITHELIAL CELLS Few None Seen, Few Epi/HPF 07/04/2023 9:30 AM FOOD INSPECTOR [facility] Mucus Present 07/04/2023 9:30 AM [facility] Urine URINE SPECIMEN / Unknown Non-Blood / Unknown 07/04/2023 9:13 AM FOOD INSPECTOR 07/04/2023 9:22 AM FOOD INSPECTOR Neptali Abdi MD URINE Performing Organization Address City/[facility]/ZIP Co de Phone Number [facility] [address] [place] [address] * URINE CULTURE (07/04/2023 9:13 AM FOOD INSPECTOR) CULTURE No growth (<1,000 CFU/mL) 07/05/2023 7:55 AM FOOD INSPECTOR [facility] Urine URINE SPECIMEN / Unknown Non-Blood / Unknown 07/04/2023 9:13 AM FOOD INSPECTOR 07/04/2023 9:22 AM FOOD INSPECTOR Neptali Abdi MD [facility]CROBIOLOGY [facility] [address] [address], * (ABNORMAL) UA W/ SEDIMENT EXAM REFLEXED PER CRITERIA (07/04/2023 9:13 AM FOOD INSPECTOR) COLOR Yellow Yellow Color 07/04/2023 9:28 AM [facility] CLARITY Cloudy(A) Clear Clarity 07/04/2023 9:28 AM [facility] SPECIFIC GRAVITY,URINE 1.015 1.010, 1.015, 1.020, 1.025 07/04/2023 9:28 AM [facility] PH,URINE 7.0 6.0, 7.0, 8.0, 5.5, 6.5, 7.5, 8.5 07/04/2023 9:28 AM [facility] UROBILINOGEN,QU ALITATIVE Normal Normal EU/dl 07/04/2023 9:28 AM [facility] PROTEIN, URINE Trace(A) Negative mg/dL 07/04/2023 9:28 AM [facility] GLUCOSE, URINE Negative Negative mg/dL 07/04/2023 9:28 AM [facility] KETONES,URINE 15(A) Negative mg/dL 07/04/2023 9:28 AM [facility] BILIRUBIN,URINE Abnormal(A) Negative 07/04/19 9:28 AM [facility] Comment:A variety of metabol ites and/or medications may result in a positive bilirubin result. Clinical correlation is recommended. OCCULT BLOOD,URINE Negative Negative 07/04/2023 9:28 AM [facility] NITRITE Negative Negative 07/04/2023 9:28 AM [facility] LEUKOCYTE ESTERASE Small(A) Negative 07/04/2023 9:28 AM [facility] Urine URINE SPECIMEN / Unknown Non-Blood / Unknown 07/04/2023 9:13 AM FOOD INSPECTOR 07/04/2023 9:22 AM FOOD INSPECTOR Neptali Abdi MD URINE [facility] [address] [place] [id number] * CWS PATH REVIEW HEMATOLOGY (07/04/2023 9:04 AM FOOD INSPECTOR) PATH COMMENT Reviewed 07/07/2023 10:44 AM [facility] Comment:Reviewed by KBL on Blood BLOOD SPECIMEN / Unknown Venipuncture / Unknown 07/04/2023 9:04 AM FOOD INSPECTOR 07/04/2023 9:10 AM FOOD INSPECTOR Neptali Abdi MD LABORATORY [facility] [address] [place] [address], * COVID-19 MOLECULAR (07/04/2023 9:04 AM FOOD INSPECTOR) Pathologist [facility] COVID 19 ALLSHAHNAZ MOLECULAR Not detected Not detected 07/04/2023 9:33 AM FOOD INSPECTOR [facility] TESTING LABORATORY [facility] 07/04/2023 9:33 AM [facility] Comment:Specimen submitted t o [facility] for testing. Other SPECIMEN FROM NASOPHARYNGEAL STRUCTURE / Unknown Non-Blood / Unknown 07/04/2023 9:04 AM FOOD INSPECTOR 07/04/2023 9:10 AM FOOD INSPECTOR Narrative [facility] - 07/04/2023 9:33 AM FOOD INSPECTOR This test has been authorized by FDA under an Emergency Use Authorization (EUA). This test is only authorized for the duration of time the declaration that circumstances exist justifying the authorization of the emergency use of in vitro diagnostic tests for detection of SARS-CoV-2 virus and/or diagnosis of COVID-19 infection under section 564(b)(1) of the Act, 21 U.S.C. 360bbb-3(b) (1), unless the authorization is terminated or revoked sooner. Neptali Abdi MD MICROBIOLOGY Performing Organization Address City/[facility]/ZIP Co de Phone Number [facility] [address] [place] [address] * INFLUENZA A/B PCR (07/04/2023 9:04 AM FOOD INSPECTOR) Pathologist [facility] INFLUENZA A PCR NOT Detected 07/04/2023 9:33 AM FOOD INSPECTOR [facility] INFLUENZA B PCR NOT Detected 07/04/2023 9:33 AM [facility] Other SPECIMEN FROM NASOPHARYNGEAL STRUCTURE / Unknown Non-Blood / Unknown 07/04/2023 9:04 AM FOOD INSPECTOR 07/04/2023 9:10 AM FOOD INSPECTOR Neptali Abdi MD MICROBIOLOGY [facility] [address] [place] [address] * (ABNORMAL) CBC WITH AUTO DIFFERENTIAL (07/04/2023 9:04 AM FOOD INSPECTOR) Pathologist [facility] WHITE BLOOD COUNT 21.3(H) 4.5 - 11.0 thou/cu mm 07/04/2023 9:31 AM [facility] RED BLOOD COUNT 5.14 4.00 - 5.20 mil/cu mm 07/04/2023 9:31 AM [facility] HEMOGLOBIN 13.9 12.0 - 16.0 g/dL 07/04/2023 9:31 AM [facility] HEMATOCRIT 41.0 33.0 - 51.0 % 07/04/2023 9:31 AM [facility] MCV 80 80 - 100 fL 07/04/2023 9:31 AM [facility] MCH 27.0 26.0 - 34.0 pg 07/04/2023 9:31 AM [facility] MCHC 33.9 32.0 - 36.0 g/dL 07/04/2023 9:31 AM [facility] RDW 13.9 11.5 - 15.5 % 07/04/2023 9:31 AM [facility] PLATELET COUNT 364 140 - 440 thou/cu mm 07/04/2023 9:31 AM [facility] MPV 10.9 6.5 - 11.0 fL 07/04/2023 9:31 AM [facility] Blood BLOOD SPECIMEN / Unknown Venipuncture / Unknown 07/04/2023 9:04 AM FOOD INSPECTOR 07/04/2023 9:10 AM [facility] Neptali Abdi MD HEMATOLOGY [facility] [address] [place] [address] * RED CELL MORPHOLOGY (07/04/2023 9:04 AM FOOD INSPECTOR) [facility] RBC COMMENT RBC morphology appears normal RBC morphology appears normal, RBC morphology within normal limits for newborns. 07/04/2023 9:31 AM [facility] Blood BLOOD SPECIMEN / Unknown Venipuncture / Unknown 07/04/2023 9:04 AM FOOD INSPECTOR 07/04/2023 9:10 AM FOOD INSPECTOR Neptali Abdi MD HEMATOLOGY Performing Organization Address City/[facility]/ZIP Co de Phone Number [facility] [address] [place] [address] * PLATELET ESTIMATE (07/04/2023 9:04 AM FOOD INSPECTOR) PLATELET ESTIMATE Adequate Adequate, No estimate 07/04/2023 9:31 AM [facility] Blood BLOOD SPECIMEN / Unknown Venipuncture / Unknown 07/04/2023 9:04 AM FOOD INSPECTOR 07/04/2023 9:10 AM FOOD INSPECTOR Neptali Abdi MD HEMATOLOGY Performing Organization Address City/[facility]/ZIP Co de Phone Number [facility] [address] [place] [address] * (ABNORMAL) MANUAL DIFFERENTIAL (07/04/2023 9:04 AM FOOD INSPECTOR) % NEUTROPHILS 85.0 % 07/04/2023 9:31 AM [facility] % LYMPHOCYTES 9.0 % 07/04/2023 9:31 AM [facility] % MONOCYTES 5.0 % 07/04/2023 9:31 AM [facility] % EOSINOPHILS 1.0 % 07/04/2023 9:31 AM [facility] % BASOPHILS 0.0 % 07/04/2023 9:31 AM [facility] NEUTROPHILS ABSOLUTE 18.1(H) 1.7 - 7.0 thou/cu mm 07/04/2023 9:31 AM [facility] LYMPHOCYTES ABSOLUTE 1.9 0.9 - 2.9 thou/cu mm 07/04/2023 9:31 AM [facility] MONOCYTES ABSOLUTE 1.1(H) <0.9 thou/cu mm 07/04/2023 9:31 AM FOOD INSPECTOR [facility] EOSINOPHILS ABSOLUTE 0.2 <0.5 thou/cu mm 07/04/2023 9:31 AM FOOD INSPECTOR [facility] BASOPHILS ABSOLUTE 0.0 <0.3 thou/cu mm 07/04/2023 9:31 AM FOOD INSPECTOR [facility] Blood BLOOD SPECIMEN / Unknown Venipuncture / Unknown 07/04/2023 9:04 AM FOOD INSPECTOR 07/04/2023 9:10 AM FOOD INSPECTOR Neptali Abdi MD HEMATOLOGY Performing Organization Address City/[facility]/ZIP Co de Phone Number [facility] [address] [place] [address] * ,SERUM (07/04/2023 9:04 AM FOOD INSPECTOR) ,SERU M Negative Negative 07/04/2023 9:23 AM FOOD INSPECTOR [facility] Blood BLOOD SPECIMEN / Unknown Venipuncture / Unknown 07/04/2023 9:04 AM FOOD INSPECTOR 07/04/2023 9:10 AM FOOD INSPECTOR Neptali Abdi MD CHEMISTRY Performing Organization Address [facility] Co de Phone Number [facility] [address] [place] [address] * LIPASE (07/04/2023 9:04 AM FOOD INSPECTOR) Pathologist [facility] LIPASE 18.9 13.0 - 60.0 IU/L 07/04/2023 9:31 AM FOOD INSPECTOR [facility] Blood BLOOD SPECIMEN / Unknown Venipuncture / Unknown 07/04/2023 9:04 AM FOOD INSPECTOR 07/04/2023 9:10 AM FOOD INSPECTOR Neptali Abdi MD CHEMISTRY Performing Organization Address City/[facility]/ZIP Co de Phone Number [facility] [address] [place] [address] * (ABNORMAL) COMP METABOLIC PANEL (07/04/2023 9:04 AM FOOD INSPECTOR) SODIUM 141 136 - 145 mmol/L 07/04/2023 9:31 AM [facility] POTASSIUM 3.5 3.5 - 5.1 mmol/L 07/04/2023 9:31 AM [facility] CHLORIDE 105 98 - 107 mmol/L 07/04/2023 9:31 AM [facility] CO2,TOTAL 24 22 - 29 mmol/L 07/04/2023 9:31 AM [facility] ANION GAP 12 5 - 18 07/04/2023 9:31 AM [facility] GLUCOSE 118(H) 70 - 99 mg/dL 07/04/2023 9:31 AM [facility] CALCIUM 9.4 8.6 - 10.0 mg/dL 07/04/2023 9:31 AM [facility] BUN 6 6 - 20 mg/dL 07/04/2023 9:31 AM [facility] CREATININE 0.73 0.50 - 0.90 mg/dL 07/04/2023 9:31 AM [facility] BUN/CREAT RATIO 8(L) 10 - 20 9:31 AM [facility] eGFR >90 >90 mL/min/1.7 3m2 07/04/2023 9:31 AM [facility] Comment:As of 2021, eG FR is calculated by the CKD-EPI creatinine equation without race adjustment. ??eGFR can be influenced by muscle mass, exercise, and diet. ??The reported eGFR is an estimation only and is only applicable if the renal function is stable. ALBUMIN 4.0 4.0 - 4.9 g/dL 07/04/2023 9:31 AM [facility] PROTEIN,TOTAL 8.1(H) 6.0 - 8.0 g/dL 07/04/2023 9:31 AM [facility] BILIRUBIN,TOTAL 0.8 0.0 - 1.2 mg/dL 07/04/2023 9:31 AM [facility] ALK PHOSPHATASE 70 35 - 104 IU/L 07/04/2023 9:31 AM FOOD INSPECTOR [facility] ALT (SGPT) 20 10 - 35 IU/L 07/04/2023 9:31 AM FOOD INSPECTOR [facility] AST (SGOT) 18 10 - 35 IU/L 07/04/2023 9:31 AM FOOD INSPECTOR [facility] Blood BLOOD SPECIMEN / Unknown Venipuncture / Unknown 07/04/2023 9:04 AM FOOD INSPECTOR 07/04/2023 9:10 AM FOOD INSPECTOR Neptali Abdi MD CHEMISTRY Performing Organization Address City/[facility]/ZIP Co de Phone Number [facility] [address] [place] [address] * (ABNORMAL) HPV HIGH RISK (12/05/2022 1:30 PM CDT) TYPE 16 Negative Negative 12/12/2022 11:16 AM CDT [facility] TYPE 18 Negative Negative 12/12/2022 11:16 AM CDT [facility] OTHER HIGH RISK TYPES Positive(A) Negative 12/12/2022 11:16 AM CDT [facility] Other (Other) Client Collect / Unknown 12/05/2022 1:30 PM CDT 12/10/2022 5:48 AM CDT Narrative [facility] - 12/12/2022 11:16 AM CDT Specimen is positive for the DNA of any one of, or combination of, the following high risk HPV types: 31, 33, 35, 39, 45, 51, 52, 56, 58, 59, 66, 68. HPV types 16 and 18 DNA were undetectable or below the pre-set threshold. ? Methodology: Precious Alexys 4800 HPV Test Khushboo Manning MD MICROBIOLOGY Performing Organization Address City/[facility]/ZIP Co de Phone Number [facility] [address] [place] [address], [place] from Last 3 Months or Most Recently Relevant to Health Maintenance Care Teams In Store Demonstrator Relationship Specialty Start Date End Date Khushboo Manning MD [address] [place] [address] PCP - General Family Practice 03/08/22
--- NOTE | 2023-09-05 09:15 | US_ITS ---
Patient: RILEY PEACE Facility:?[facility] Patient ID:?[id number] Site Patient ID:?[id number]. Site :?[id number] Study:?US-Breast Left DR MARTINEZ TO READ-09/05/2023 9:30:00 AM Ordering Physician:?COSTA BUI Final Report: PLEASE SEE DIGITAL DIAGNOSTIC LEFT MAMMOGRAM PERFORMED SAME DAY CRL:elizabeth johnson/Dictated by: Ronnie Martinez MD @ 09/05/2023 11:39:00 AM Signed by:?Ronnie Martinez MD @09/05/2023 3:02:24 PM (Electronic Signature)
== END 2023-09-05 08:54 | disposition home or self-care (01) ==
LOC: MAMMO 08:54
PROVIDERS: PCP Family Medicine; Visit Provider Family Medicine
DX: N63.20 Unspecified lump in the left breast, unspecified quadrant (principal); R92.8 Other abnormal and inconclusive findings on diagnostic imaging of breast
CPT/HCPCS: 76642; 77065; G0279

== ENCOUNTER 2024-01-30 08:11 | Outpatient (CLI) | payer MEDICAID, SELFPAY ==
--- OUTSIDE RECORDS SUMMARY | 2024-02-03 04:24 | XMS_ITS | Clinical Summary ---
Author Organization [facility] Address [place], [place] [address] Care Team Providers Care Search Specialist Name Role Phone Khushboo Manning MD Primary [...] Active Problems Problem Noted Date Diagnosed Date Asthma 12/01/2023 BMI 40.0-44.9, adult 12/01/2023 Abnormal PFT 12/01/2023 Migraine without status migrainosus, not intract able [...] incontinence 06/26/2006 Chronic serous OM (otitis media) Overview (11/28/2011): Sees Dr. Yang Resolved Problems Problem Noted Date Diagnosed Date Resolved Date Depressive disorder, not elsewhere classified 06/26/19 07 05/25/2015 Immunizations Name Administration Dates Next Due Hepatitis B (Adult) 06/25/2006,03/25/2002 Hepatitis B (Peds) 02/01/1999 Human Papilloma Virus Vaccine 01/31/2009, 009,07/28/2008 Influenza, IIV3 (Age >=3 years) 03/11/20 13,01/28/2012,02/07/2009,2007 Influenza, IIV4 04/23/2023, 2,06/08/2021,2017,08/01/2016,03/10/2014,05/09/2009 Pneumococcal Poly,23-Valent (Pneumovax) 03/11/2013 Td (Age >=7 [...] Comments Blood Pressure 145/88 07/04/2023 8:49 AM LOGISTICS OFFICER Pulse 90 07/04/2023 8:49 AM LOGISTICS OFFICER Temperature 36.3 ??C (97.4 ??F) 07/04/2023 8:49 AM CS T Respiratory Rate 18 07/04/2023 8:49 AM LOGISTICS OFFICER Oxygen Saturation 99% 07/04/2023 8:49 AM LOGISTICS OFFICER Inhaled Oxygen Concentration - - Weight 89.8 kg (198 lb) 07/04/2023 8:49 AM LOGISTICS OFFICER Height 152.4 cm (5') 07/04/2023 8:49 AM LOGISTICS OFFICER Body Mass Index 38.67 07/04/2023 8:49 AM LOGISTICS OFFICER Plan of Treatment Health Maintenance Due Date Last Done Comments HIV for age 15-65 1997 Hepatitis C screening for age 18-79 2000 BMI (ht and wt on same day) for age 18+ 10/01/2016 10/02/2015, 09/22/2015 Depression screening for age 12+ 11/27/2016 11/28/2015, 09/22/2015 Influenza for age 9-49 01/18/2024 3, 04/18/2022, 06/08/2021, Additional history exists Tetanus booster 09/21/2025 09/22/2015, 06/25/2006 Pap test for age 21-65 12/05/2025 3, 12/05/2022, 08/19/2017, Additional history exists Pneumococcal series for age 6-64 Aged Out 03/11/2013 No longer eligible based on patient's age to complete this topic Tdap Completed 09/22/2015 COVID-19 vaccine series Completed 04/23/20 23, 04/18/2022, 07/12/2020, Additional history exists Procedures Procedure Name Priority Date/Time Associated Diagnosis Comments HPV HIGH RISK Routine 12/05/2022 1:30 PM CDT from Last 3 Months or Most Recently Relevant to Health Maintenance Results * (ABNORMAL) HPV HIGH RISK (12/05/2022 1:30 PM CDT) TYPE 16 Negative Negative 12/12/2022 11:16 AM CDT [facility] TYPE 18 Negative Negative 12/12/2022 11:16 AM CDT [facility] OTHER HIGH RISK TYPES Positive(A) Negative 12/12/2022 11:16 AM CDT [facility] Other (Other) Client Collect / Unknown 12/05/2022 1:30 PM CDT 12/10/2022 5:48 AM CDT [facility] - 12/12/2022 11:16 AM CDT Specimen is positive for the DNA of any one of, or combination of, the following high risk HPV types: 31, 33, 35, 39, 45, 51, 52, 56, 58, 59, 66, 68. HPV types 16 and 18 DNA were undetectable or below the pre-set threshold. ? Methodology: Precious Alexys 4800 HPV Test Khushboo Manning MD MICROBIOLOGY [facility] [address] [place], [place] [address] [address] [place] [address], from Last 3 Months or Most Recently Relevant to Health Maintenance Care Teams Search Specialist Relationship Specialty Start Date End Date Khushboo Manning MD [address] [place] [address] PCP - General Family Practice 03/08/22
== END 2024-01-30 08:12 | disposition home or self-care (01) ==
LOC: NFLDREF 02-03 04:22
PROVIDERS: PCP Family Medicine; Referring Provider Family Medicine; Visit Provider Family Medicine
DX: E78.5 Hyperlipidemia, unspecified (principal)
CPT/HCPCS: 80053; 80061

== ENCOUNTER 2024-02-04 08:14 | Outpatient (CLI) | payer MEDICAID, SELFPAY ==
--- OUTSIDE RECORDS SUMMARY | 2024-02-04 08:16 | XMS_ITS | Clinical Summary ---
Author Organization [facility] [facility] Address [place], [place] [address] Care Team Providers Care Printing Worker Supervisor Name Role Phone Khushboo Manning MD Primary [...] Comments Blood Pressure 145/88 07/04/2023 8:49 AM CLEANING LABORER Pulse 90 07/04/2023 8:49 AM CLEANING LABORER Temperature 36.3 ??C (97.4 ??F) 07/04/2023 8:49 AM CS T Respiratory Rate 18 07/04/2023 8:49 AM CLEANING LABORER Oxygen Saturation 99% 07/04/2023 8:49 AM CLEANING LABORER Inhaled Oxygen Concentration - - Weight 89.8 kg (198 lb) 07/04/2023 8:49 AM CLEANING LABORER Height 152.4 cm (5') 07/04/2023 8:49 AM CLEANING LABORER Body Mass Index 38.67 07/04/2023 8:49 AM CLEANING LABORER Plan of Treatment Health Maintenance Due Date [...] 16 Negative Negative 12/12/2022 11:16 AM CDT [facility] TYPE 18 Negative Negative 12/12/2022 11:16 AM CDT [facility] OTHER HIGH RISK TYPES Positive(A) Negative 12/12/2022 11:16 AM CDT [facility] Other (Other) Client Collect / Unknown 12/05/2022 1:30 PM CDT 12/10/2022 5:48 AM [facility]T [facility] 12/12/2022 11:16 AM CDT Specimen is positive for the DNA of any one of, or combination of, the following high risk HPV types: 31, 33, 35, 39, 45, 51, 52, 56, 58, 59, 66, 68. HPV types 16 and 18 DNA were undetectable or below the pre-set threshold. ? Methodology: Precious Alexys 4800 HPV Test Khushboo Manning MD MICROBIOLOGY [facility] [address] [place], [place] [address]E [employer] [address] [place] [address], from Last 3 Months or Most Recently Relevant to Health Maintenance Care Teams Printing Worker Supervisor Relationship Specialty Start Date End Date Khushboo Manning MD [address] [place] [address] PCP - General Family Practice 03/08/22
[2024-02-12 14:59] LABS: PAP Reflex Billing Y; Pap Test Reviewed by Path Done
[2024-02-13 07:24] LABS: HPV High Risk Not Detected
== END 2024-02-04 08:15 | disposition home or self-care (01) ==
LOC: NFLDREF 08:15
PROVIDERS: PCP Family Medicine; Visit Provider Family Medicine
DX: Z12.4 Encounter for screening for malignant neoplasm of cervix (principal); R87.612 Low grade squamous intraepithelial lesion on cytologic smear of cervix (LGSIL)
CPT/HCPCS: 87624; 87625; 88141; 88142

== ENCOUNTER 2024-06-17 19:57 | Emergency (ER) | payer MEDICARE, SELFPAY ==
--- OUTSIDE RECORDS SUMMARY | 2024-06-17 20:01 | XMS_ITS | CCD ---
Author Organization Unknown Care Team Providers Care Russian Language Instructor Name Role Phone Military Technology Specialist, [place] Primary Care Provider Unava ilable Unavailable Chronic Care Management Unavaila ble Summary Purpose DataExchange Insurance Providers Payer name Policy type / Coverage type Covered green party ID Effective Begin Date Effective End Date [employer] Commercial Insurance [id number] Unkn own Medicaid [place] Commercial Insurance [id number] Unk nown Family History Family History data not found Medication Administered No Medication Administered data Reason For Visit No Reason For Visit data
--- OUTSIDE RECORDS SUMMARY | 2024-06-17 20:01 | XMS_ITS | Clinical Summary ---
Author Organization [email or web address] [facility] Address [place], [place] [address] Care Team Providers Care Raw Stock Drier Tender Name Role Phone Khushboo Manning MD Primary Care Provider + Allergies Active Allergy Reactions Criticality Noted Date Comments Cats (Fur, Dander, Saliva) Shortness Of Breath 07/13/2012 Unlisted Allergen (Include Detail In Comments) Other - Describe In Comment Field 02/10/2012 Pollen and dust-itchy eyes and nasal congestion Medications MULTIVITAMIN ORAL Once daily 0 10/10/19 07 Active Nebulizer Accessories 1 Kit 0 07/13/19 13 Active PROAIR HFA 90 mcg/actuation inhalerIndicatio ns:Cough INHALE ONE OR TWO PUFFS BY MOUTH EVERY FOUR HOURS NEEDED 1 Inhaler 1 05/25/19 16 Active montelukast (SINGULAIR) 10 mg tabletIndication s:Mild persistent asthma with acute exacerbation Take 1 tablet by mouth at bedtime. 90 tablet 3 09/22/19 16 Active oxybutynin (DITROPAN) 5 mg tabletIndication s:Unspecified urinary incontinence Take 1 tablet by mouth once daily. 90 tablet 3 09/22/19 16 Active propranolol (INDERAL) 40 mg tabletIndication s:Headache, unspecified headache type Take 1 tablet by mouth once daily. 90 tablet 3 09/22/19 16 Active mometasone (ASMANEX TWISTHALER) 220 mcg (14 doses) aepbIndications: Mild persistent asthma with acute exacerbation Inhale 2 Puffs by mouth 2 times daily. 1 canister 12 09/22/19 16 Active acetaminophen-is ometheptane-dich loralphenazone, 325-65-100 mg, (MIDRIN) 65-100-325 mg capsuleIndicatio ns:Migraine without status migrainosus, not intractable, unspecified migraine type Take 1 capsule by mouth 4 times daily if needed for Migraine. Max acetaminophen dose: 4000mg in 24 hrs. 10 capsule 0 09/22/19 16 Active ranitidine (ZANTAC) 150 mg tabletIndication s:PUD (peptic ulcer disease) Take 1 tablet by mouth 2 times daily. 60 tablet 12 09/22/19 16 Active venlafaxine (EFFEXOR) 75 mg tabletIndication s:Depressive disorder,General ized anxiety disorder TAKE TWO TABLETS BY MOUTH TWICE DAILY 10 tablet 0 10/19/19 16 Active venlafaxine (EFFEXOR) 75 mg tabletIndication s:Dysthymic disorder,General ized anxiety disorder Take 1 tab by mouth BID for 5 days, then 2 tabs BID as tolerated 120 tablet 2 11/28/19 16 Active zaleplon (SONATA) 5 mg capsuleIndicatio ns:Generalized anxiety disorder Take 1 capsule by mouth every HS prn sleep 30 Cap 2 11/28/19 16 Active LORazepam (ATIVAN) 0.5 mg tabIndications:G eneralized anxiety disorder Take one-half tablet by mouth up to twice daily as needed for acute anxiety. 30 tablet 2 11/28/19 16 Active Hospital, Clinic, or Other Facility Administered [...] (Age >=3 years) 03/11/20 13,01/28/2012,02/07/2009,2007 Influenza, IIV4 04/23/2023,,06/08/2021,2017,08/01/2016,03/10/2014,05/09/2009 Pneumococcal Poly,23-Valent (Pneumovax) 03/11/2013 Td (Age >=7 [...] drink = 0.6 oz pur e alcohol) Comments No Sex and Gender Information Value Date Recorded Sex Assigned at Not on file Legal Sex Female 5:25 AM ENAMEL FINISHER Gender Identity Not on file Sexual Orientation Not on file Occupation Industry Job Start Date Job End Date [employer] Not on file Not on kaitlin e Not on file Obstetrics History Para Term AB IAB SAB Ectopic Multiple Livin g Live Births 0 0 0 0 0 0 0 0 0 0 Last Filed Vital Signs Vital Sign Reading Time Taken Comments Blood Pressure 145/88 07/04/2023 8:49 AM ENAMEL FINISHER Pulse 90 07/04/2023 8:49 AM ENAMEL FINISHER Temperature 36.3 C (97.4 F) 07/04/2023 8:49 AM ENAMEL FINISHER Respiratory Rate 18 07/04/2023 8:49 AM ENAMEL FINISHER Oxygen Saturation 99% 07/04/2023 8:49 AM ENAMEL FINISHER Inhaled Oxygen Concentration - - Weight 89.8 kg (198 lb) 07/04/2023 8:49 AM ENAMEL FINISHER Height 152.4 cm (5') 07/04/2023 8:49 AM ENAMEL FINISHER Body Mass Index 38.67 07/04/2023 8:49 AM ENAMEL FINISHER Plan of Treatment Health Maintenance Due Date Last Done Comments HIV for age 15-65 1997 Hepatitis C screening for age 18-79 2000 BMI (ht and wt on same day) for age 18+ 10/01/2016 10/02/2015, 09/22/2015 Depression screening for age 12+ 11/27/2016 11/28/2015, 09/22/2015 COVID-19 vaccine series ( season) 2024 04/23/2023, 04/18/2022, 07/12/2020, Additional history exists Influenza for age 9-49 01/18/2024 , 04/18/2022, 06/08/2021, Additional history exists Tetanus booster 09/21/2025 09/22/2015, 06/25/2006 Pap test for age 21-65 12/05/2025 , 12/05/2022, 08/19/2017, Additional history exists Pneumococcal series for age 6-49 Aged Out 03/11/2013 No longer eligible based on patient's age to complete this topic Tdap Completed 09/22/2015 Procedures Procedure Name Priority Date/Time Associated Diagnosis Comments HPV HIGH RISK Routine 12/05/2022 1:30 PM CDT from Last 3 Months or Most Recently Relevant to Health Maintenance Results * (ABNORMAL) HPV HIGH RISK (12/05/2022 1:30 PM CDT) TYPE 16 Negative Negative 12/12/2022 11:16 AM CDT [facility] TYPE 18 Negative Negative 12/12/2022 11:16 AM CDT [facility]ORY OTHER HIGH RISK TYPES Positive(A) Negative 12/12/2022 11:16 AM CDT [facility] Other (Other) Client Collect / Unknown 12/05/2022 1:30 PM CDT 12/10/2022 5:48 AM CDT Narrative [facility] - 12/12/2022 11:16 AM CDT Specimen is positive for the DNA of any one of, or combination of, the following high risk HPV types: 31, 33, 35, 39, 45, 51, 52, 56, 58, 59, 66, 68. HPV types 16 and 18 DNA were undetectable or below the pre-set threshold. Methodology: Precious Alexys 4800 HPV Test Khushboo Manning MD MICROBIOLOGY Final Re sult [facility] [address] [place] [address], from Last 3 Months or Most Recently Relevant to Health Maintenance Insurance MEDICARE PART B HB ONLY MEDICARE PART A HB ONLY [facility] Care Teams Raw Stock Drier Tender Relationship Specialty Start Date End Date Khushboo Manning MD [address] [place] [address] PCP - General Family Practice 03/08/22
[2024-06-17 20:25] VITALS: BP 109/72; PULSE 124; RESP 20; TEMP 38.2; O2SAT 94; BMI 34.8
[2024-06-17 20:32] LABS: Appearance Urine Clear (Clear); Bilirubin Urine Negative (Negative); Blood Urine Trace-intact (Negative); Color Urine Yellow (Yellow); Glucose Urine Negative (Negative); Ketones Urine Negative (Negative); Leukocyte Esterase Urine Negative (Negative); Nitrite Urine Negative (Negative); Protein Urine 3+ (Negative); Specific Gravity Urine >= 1.030 (1.000-1.030); Urobilinogen Urine 0.2 (0.2-1.0)
--- NOTE | 2024-06-17 20:42 | ED.GENADULT ---
HPI - General Adult General Time Seen by Provider: 20:42 Date Seen: 06/17/24 Chief complaint: Urogenital Problems, Female Stated complaint: UTI and SOB-vomiting Time Seen by Provider: 06/17/24 20:42 Source: patient and RN notes reviewed Mode of arrival: ambulatory Limitations: no limitations History of Present Illness HPI narrative: Patient has been sick for about 3 days now, coughing, fevers, body aches, headache. She also has a history UTIs and thinks she might have a UTI, feels burning with urination. She has had fevers, has not taken anything for her fever. Her temperature on arrival here is 100.7? F. She states she does have asthma. She really thinks she probably has UTI given the dysuria. No significant abdominal pain but has noticed pain sometimes from her genital area going into the right leg. She is tried cough medicines the last few days. She has felt short of breath with this. She has been vomiting with her current symptoms as well. She does note some nasal congestion with this. Related Data Home Medications ?Medication ?Instructions ?Recorded ?Confirmed dupilumab 200 mg/1.14 mL 200 mg subcut Q2W 02/25/22 02/04/24 subcutaneous pen injector fluticasone furoate 100 1 inh inhalation QDAY 02/25/22 02/04/24 mcg-vilanterol 25 mcg/dose inhalation powder (Breo Ellipta) tiotropium bromide 2.5 2 puff inhalation QDAY 02/25/22 02/04/24 mcg/actuation mist for inhalation (Spiriva Respimat) Previous Rx's ?Medication ?Instructions ?Recorded cyclobenzaprine 10 mg tablet 10 mg PO TID PRN muscle spasm #30 12/28/22 tabs albuterol sulfate 90 mcg/actuation 2 puff inhalation Q6-8H PRN 03/27/23 aerosol inhaler shortness of breath or wheezing #6.7 grams ibuprofen 800 mg tablet 800 mg PO Q8H PRN pain #30 tabs 10/27/23 montelukast 10 mg tablet 10 mg PO QDAY #90 tabs 10/27/23 albuterol sulfate 2.5 mg/3 mL 2.5 mg (3 mL) continuous 11/27/23 (0.083 %) solution for nebulization nebulization Q6-8H PRN shortness of breath or wheezing #75 mL famotidine 20 mg tablet 20 mg PO QDAY #90 tabs 02/04/24 levonorgestrel-ethinyl estradiol 1 tab PO DAILY #84 tabs 02/04/24 0.1 mg-20 mcg tablet (Vienva) oxybutynin chloride 5 mg tablet 5 mg PO QDAY #90 tabs 02/04/24 promethazine 25 mg tablet 25 mg PO DAILY PRN for 02/04/24 nausea/vomiting #30 tabs propranolol 20 mg tablet 40 mg (2 x 20 mg) PO QDAY #180 tabs 02/04/24 rosuvastatin 10 mg tablet 10 mg PO QDAY #90 tabs 02/04/24 venlafaxine 150 mg 150 mg PO QDAY #90 caps 02/04/24 capsule,extended release 24 hr venlafaxine 75 mg capsule,extended 75 mg PO QDAY #90 caps 02/04/24 release 24 hr lorazepam 0.5 mg tablet 0.5 mg PO QDAY PRN anxiety #30 tabs 04/20/24 Allergies Allergy/AdvReac Type Severity Reaction Status Date / Time Dust mites Allergy Mild itchy eyes Uncoded 02/04/24 07:13 and swollen, SOB Pollen Allergy Mild itchy Uncoded 02/04/24 07:13 eyes, SOB Review of Systems Status of ROS: Reports: 6 or more systems reviewed and unremarkable except as noted in History and below [facility] Medical History Severe asthma ?J45.909 - Unspecified asthma, uncomplicated (ICD-10) Obesity (BMI 30-39.9) (2010) ?E66.9 - Obesity, unspecified (ICD-10) Dyslipidemia ?E78.5 - Hyperlipidemia, unspecified (ICD-10) Morbid obesity with BMI of 45.0-49.9, adult ?E66.01 - Morbid (severe) obesity due to excess calories (ICD-10) ?Z68.42 - Body mass index [BMI] 45.0-49.9, adult (ICD-10) Depression ?F32.A - Depression, unspecified (ICD-10) Paronychia Obstructive sleep apnea treated with continuous positive airway pressure (CPAP) (07/2021) ?G47.33 - Obstructive sleep apnea (adult) (pediatric) (ICD-10) ?Z99.89 - Dependence on other enabling machines and devices (ICD-10) Moderate persistent asthma (2011) ?J45.40 - Moderate persistent asthma, uncomplicated (ICD-10) Migraine headache (2009) ?G43.909 - Migraine, unspecified, not intractable, without status migrainosus (ICD-10) Chronic gastroesophageal reflux disease ?K21.9 - Gastro-esophageal reflux disease without esophagitis (ICD-10) Chronic diarrhea (12/02/08) ?K52.9 - Noninfective gastroenteritis and colitis, unspecified (ICD-10) Surgical History History of colposcopy with cervical biopsy (2022) ?Z98.890 - Other specified postprocedural states (ICD-10) Hx of tympanostomy tubes ?Z98.890 - Other specified postprocedural states (ICD-10) History of carpal tunnel surgery of left wrist (2017) ?Z98.890 - Other specified postprocedural states (ICD-10) Family History Maternal Grandmother Breast cancer Stroke Maternal Grandfather Diabetes Myocardial infarction, Onset Age: 80 Mother Diabetes Social History Narrative: Single, assisted living [place], has boyfriend Does not drink alcohol Does not have regular exercise regimen Non-smoker What is your current living situation?: I have a place to live at present, but am concerned about future Problems where you live: oven or stove not working In the past 12 months, utilities in danger of being shut off: no In past 12 months, lack of transportation kept you from medical appts, meetings, work, or getting things needed for daily living: yes In the past 12 mos, have been you worried that your food would run out before you had money to buy more?: never true In the past 12 mos, the food you bought just didn't last and you didn't have money to buy more?: never true Smoking Status: Never smoker Do you use any of these nicotine containing products: None Second hand tobacco smoke exposure: No How often do you have a drink containing alcohol: never AUDIT-C Alcohol total score: 0 Non-prescribed substance use: denies use How often does anyone, including family, friends and others, physically hurt you: never How often does anyone, including family, friends and others, insult or talk down to you: never How often does anyone, including family, friends and others, threaten you with harm: never How often does anyone, including family, friends and others, scream or curse at you: never service: No Health Related Social Needs: Inadequate housing (Z59.1), housing instability, housed, with risk of homelessness (Z59.811) and transportation insecurity (Z59.82) Exam Const: Vital Signs, click to edit/add: Vital Signs - 24 hr 06/17/24 20:25 06/17/24 20:52 Temperature 100.7 F H 100.7 F H Pulse Rate [Pulse Oximeter] 124 H Respiratory Rate 20 Blood Pressure [Ri ght Upper Arm] 109/72 Pulse Oximetry 94 Oxygen Delivery Me thod Room Air This 44-year-old female is alert, interactive, no apparent distress but looks like she does not feel well. She is asking for another blanket, states she feels chilled. Pupils equal round reactive, sclera clear. TMs are normal no evidence of infection. Dentition in moderate repair, some dental caries noted. Oropharynx slightly dry no exudates or erythema. Lips with some cracking. Neck is supple, no adenopathy. Lungs are clear, good air entry, no wheezing or crackles. CV slightly fast but regular, no murmur, normal S1-S2, no S3-S4. Abdomen is soft, nontender, nondistended, no masses organomegaly noted. Documenting provider has reviewed patient's vital signs: yes Course Course ED Course: We will await urinalysis and triple viral swab. It is possible that she could have a UTI as well as upper respiratory infection. Given her presentation, suspect influenza A. She is not actively wheezing, do not see any signs of acute asthma exacerbation at this time. Patient does agree to take 1000 mg Tylenol for symptom control. Will have her drink some fluids while here. Reevaluation(s) Time of Reevaluation #1: 21:51 Reevaluation #1: Have reviewed with patient that she has influenza A. Her urinalysis is looking reassuring, some contamination but we will culture. If it does grow anything, we can treat her. We discussed that she needs to treat her fevers. Her urine is probably more bothersome due to fevers, not drinking enough. We discussed drinking more fluids. On re-evaluation, she is not wheezing, not tachypneic but does have some cough. She does have notation of having severe asthma by pulmonology. She technically is out of the 48 hour window but with her severe asthma, favor that this patient should have Tamiflu. She is aware may not be as effective as she potentially may be out of the 48 hour window. I do feel strongly though that we should try given her history of severe asthma. She is not wheezing at this time, do not think prednisone is indicated but she will watch her symptoms closely, seek re-evaluation if need be. Vital Signs Vital signs: Initial Vital Signs Temperature 100.7 F H 06/17/24 20:25 Temperature Source Temporal Artery Scan 06/17/24 20:25 Pulse Rate 124 H 06/17/24 20:25 Respiratory Rate 20 06/17/24 20:25 Blood Pressure 109/72 06/17/24 20:25 Blood Pressure Mean 84 06/17/24 20:25 Blood Pressure Position Sitting 06/17/24 20:25 Pulse Oximetry 94 06/17/24 20:25 Oxygen Delivery Method Room Air 06/17/24 20:25 Vital Signs Temperature 100.7 F H 06/17/24 20:25 Pulse Rate 124 H 06/17/24 20:25 Respiratory Rate 20 06/17/24 20:25 Blood Pressure 109/72 06/17/24 20:25 Pulse Oximetry 94 06/17/24 20:25 Oxygen Delivery Method Room Air 06/17/24 20:25 Temperature 100.7 F H 06/17/24 20:52 Pulse Rate 124 H 06/17/24 20:25 Respiratory Rate 20 06/17/24 20:25 Blood Pressure 109/72 06/17/24 20:25 Pulse Oximetry 94 06/17/24 20:25 Oxygen Delivery Method Room Air 06/17/24 20:25 Medications Administered Medications: Discontinued Medications Generic Name Dose Route Start Last Admin Trade Name Freq PRN Reason Stop Dose Admin Acetaminophen 1,000 mg 06/17/24 20:50 06/17/24 20:52 Acetaminophen 500 Mg Tablet PO 06/17/24 20:51 1,000 mg ONCE ONE Administration Medical Decision Making Lab Data Labs: Lab Results 06/17/24 Range/Units 20:20 Urine Color Yellow (Yellow) Urine Appearance Clear (Clear) Urine pH 6.0 (5.0-8.5) Ur Specific [place] >= 1.030 (1.000-1.030) Urine Protein 3+ A (Negative) Urine Glucose (UA) Negative (Negative) Urine Ketones Negative (Negative) Urine Blood Trace-intact A (Negative) Urine Nitrite Negative (Negative) Urine Bilirubin Negative (Negative) Urine Urobilinogen 0.2 (0.2-1.0) Ur Leukocyte Esterase Negative (Negative) Urine RBC 2-5 A (0-2) Urine WBC 2-5 (0-5) Ur Squamous Epith Cells Moderate A (None-Few) Urine Bacteria Few A (None) SARS-CoV-2 (PCR) Negative SARS-CoV-2 (Negative) Influenza Type A (PCR) POSITIVE PCR FLU A A (Negative) Influenza Type B (PCR) Negative PCR FLU B (Negative) RSV (PCR) Negative PCR RSV (Negative) Discharge Plan Discharge Clinical Impression: Influenza A, Dysuria Patient Disposition: Home, Self-Care Condition: Stable Instructions: Influenza (ED) Additional Instructions: Start Tamiflu and take as prescribed. Do recommend treating your fever with Tylenol and ibuprofen alternating, follow bottle directions for dosing. You need to increase fluids, try to drink more. If you feel your asthma is worsening, have further concerns, feel you are worsening, please seek re-evaluation. Do recommend using nebs as needed through this illness. You should quarantine until you are fever free off Tylenol and ibuprofen for 24 hours and improving from this illness. Activity Level: Activity as Tolerated Prescriptions: No Action venlafaxine 75 mg capsule,extended release 24hr 75 mg PO QDAY Qty: 90 3RF Patient Comments: TAKE ONE CAPSULE (75MG) BY MOUTH ONCE DAILY ALONG WITH 1-150MG CAP FOR TOTAL DOSE OF 225MG venlafaxine 150 mg capsule,extended release 24hr 150 mg PO QDAY Qty: 90 3RF Patient Comments: TAKE 1 CAPSULE (150MG) BY MOUTH ONCE DAILY famotidine 20 mg tablet 20 mg PO QDAY Qty: 90 3RF Patient Comments: TAKE ONE TABLET BY MOUTH DAILY levonorgestrel-ethinyl estrad [Vienva] 0.1-20 mg-mcg tablet 1 tab PO DAILY Qty: 84 3RF oxybutynin chloride 5 mg tablet 5 mg PO QDAY Qty: 90 3RF Patient Comments: TAKE ONE TABLET BY MOUTH DAILY propranolol 20 mg tablet 40 mg PO QDAY Qty: 180 3RF Patient Comments: TAKE TWO TABLETS(40MG) BY MOUTH DAILY rosuvastatin 10 mg tablet 10 mg PO QDAY Qty: 90 3RF Patient Comments: TAKE ONE TABLET BY MOUTH DAILY promethazine 25 mg tablet 25 mg PO DAILY PRN (Reason: for nausea/vomiting) Qty: 30 0RF dupilumab 200 mg/1.14 mL pen injector 200 mg subcut Q2W cyclobenzaprine 10 mg tablet 10 mg PO TID PRN (Reason: muscle spasm) Qty: 30 0RF fluticasone furoate-vilanterol [Breo Ellipta] 100-25 mcg/dose blister with device 1 inh INHALATION QDAY Patient Comments: INHALE 1 PUFF EVERY DAY AT THE SAME TIME EACH DAY RINSE AND SPIT AFTER USE (BUT DO NOT GARGLE). Spiriva Respimat 2.5 mcg/actuation mist 2 puff INHALATION QDAY Patient Comments: INHALE 2 PUFF BY INHALATION ROUTE EVERY DAY AT THE SAME TIME EACH DAY albuterol sulfate 90 mcg/actuation HFA aerosol inhaler 2 puff INHALATION Q6-8H PRN (Reason: shortness of breath or wheezing) Qty: 6.7 0RF Rx Instructions: patient needs to be seen before any future refills montelukast 10 mg tablet 10 mg PO QDAY Qty: 90 0RF Patient Comments: TAKE ONE TABLET BY MOUTH AT BEDTIME ibuprofen 800 mg tablet 800 mg PO Q8H PRN (Reason: pain) Qty: 30 0RF albuterol sulfate 2.5 mg /3 mL (0.083 %) solution for nebulization 2.5 mg continuous nebulization Q6-8H PRN (Reason: shortness of breath or wheezing) Qty: 75 10RF lorazepam 0.5 mg tablet 0.5 mg PO QDAY PRN (Reason: anxiety) Qty: 30 0RF Rx Instructions: 1 tab as needed only for anxiety. Follow Up/Referrals: Khushboo Manning MD [Primary Care Provider] - Stand Alone Forms: Gem Info Instructions
[2024-06-17 20:52] VITALS: TEMP 38.2
[2024-06-17] MEDS: ACETAMINOPHEN 500 MG TABLET 1000 MG PO (20:52)
[2024-06-17 21:13] LABS: Bacteria Urine Few; Squamous Epithelial Cell Urine Moderate (None-Few)
--- OUTSIDE RECORDS SUMMARY | 2024-06-17 21:28 | XMS_ITS | Clinical Summary ---
Author Organization [employer] [facility] [employer] Address [place], [place] [address] Care Team Providers Care Director Operations Broadcast Name Role Phone Khushboo Manning MD Primary [...] on file Legal Sex Female 5:25 AM SUPERVISOR OF OFFICIALS Gender Identity Not on file Sexual Orientation [...] Comments Blood Pressure 145/88 07/04/2023 8:49 AM SUPERVISOR OF OFFICIALS Pulse 90 07/04/2023 8:49 AM SUPERVISOR OF OFFICIALS Temperature 36.3 C (97.4 F) 07/04/2023 8:49 AM SUPERVISOR OF OFFICIALS Respiratory Rate 18 07/04/2023 8:49 AM SUPERVISOR OF OFFICIALS Oxygen Saturation 99% 07/04/2023 8:49 AM SUPERVISOR OF OFFICIALS Inhaled Oxygen Concentration - - Weight 89.8 kg (198 lb) 07/04/2023 8:49 AM SUPERVISOR OF OFFICIALS Height 152.4 cm (5') 07/04/2023 8:49 AM SUPERVISOR OF OFFICIALS Body Mass Index 38.67 07/04/2023 8:49 AM SUPERVISOR OF OFFICIALS Plan of Treatment Health Maintenance Due Date [...] 16 Negative Negative 12/12/2022 11:16 AM CDT [facility] TYPE 18 Negative Negative 12/12/2022 11:16 AM CDT [facility] OTHER HIGH RISK TYPES Positive(A) Negative 12/12/2022 11:16 AM CDT [facility] Other (Other) Client Collect / Unknown 12/05/2022 1:30 PM CDT 12/10/2022 5:48 AM CDT [facility]arrative [facility] 12/12/2022 11:16 AM CDT Specimen is positive for the DNA of any one of, or combination of, the following high risk HPV types: 31, 33, 35, 39, 45, 51, 52, 56, 58, 59, 66, 68. HPV types 16 and 18 DNA were undetectable or below the pre-set threshold. Methodology: Precious Alexys 4800 HPV Test Khushboo Manning MD MICROBIOLOGY Final Re sult [facility] [address] [place] [address], from Last 3 Months or Most Recently Relevant to Health Maintenance Insurance MEDICARE PART B HB ONLY MEDICARE PART A HB ONLY [facility] Care Teams Director Operations Broadcast Relationship Specialty Start Date End Date Khushboo Manning MD [address] [place] [address] PCP - General Family Practice 03/08/22
--- OUTSIDE RECORDS SUMMARY | 2024-06-17 21:28 | XMS_ITS | CCD ---
Author Organization Unknown Care Team Providers Care Candlemaking Laborer Name Role Phone Client Account Assistant, [place] Primary Care Provider Unava ilable Unavailable Chronic Care Management Unavaila ble Summary Purpose DataExchange Insurance Providers Payer name Policy type / Coverage type Covered democrat ID Effective Begin Date Effective End Date [employer] Commercial Insurance [id number] Unkn own Medicaid [place] Commercial Insurance [id number] Unk nown Family History Family History data not found Medication Administered No Medication Administered data Reason For Visit No Reason For Visit data
[2024-06-17 21:30] LABS: PCR FLU A POSITIVE PCR FLU A (Negative); PCR FLU B Negative PCR FLU B (Negative); PCR RSV Negative PCR RSV (Negative); SARS PCR* Negative SARS-CoV-2 (Negative)
[2024-06-17 22:01] VITALS: BP 115/74; PULSE 98; RESP 20; TEMP 37.2; O2SAT 94
== END 2024-06-17 22:02 | disposition home or self-care (01) ==
PROVIDERS: Emergency Provider Family Medicine; PCP Family Medicine
DX: R30.0 Dysuria (principal); J10.1 Influenza due to other identified influenza virus with other respiratory manifestations
CPT/HCPCS: 81001; 87086; 87637; 99283; A9270

== ENCOUNTER 2025-03-30 07:20 | Outpatient (CLI) | payer MEDICARE, SELFPAY | END 2025-03-30 07:21 | disposition home or self-care (01) | LOC: NFLDREF 04-14 13:53 | PROVIDERS: PCP Family Medicine; Referring Provider Family Medicine; Visit Provider Family Medicine | DX: Z00.00 Encounter for general adult medical examination without abnormal findings (principal) | CPT/HCPCS: 80053; 80061; 84443 ==